=== PATIENT | male | born 1960 | race Caucasian/White ===

== ENCOUNTER 2020-05-15 18:00 | Outpatient (RCR) | payer OTHER, SELFPAY ==
[2020-03-10 08:44] VITALS: PULSE 62
[2020-03-10 09:48] VITALS: BP 114/64; PULSE 62; RESP 16; TEMP 36.7; O2SAT 96
--- NOTE | 2020-05-22 09:12 | PCCPR ---
Addendum entered by Meme Blake RN 05/29/20 14:49: oTny called today state he is still on crutches and unable to go to work. His Md is still trying to determine plan of action. He feels either way he will not be able t come in and complete the program. He wanted his dc papers sent to him. Original Note: Tony called this morning and stated that he had an accident over the weekend and fell. He bruised ribs and possibly tore his ACL. He is to see an orthopaedist this week to determine his plan of care. He will be absent this week and possibly place him on hold, depending on his diagnosis.
== END 2020-05-29 14:52 | disposition home or self-care (01) ==
LOC: ANHCPREHAB 18:00
PROVIDERS: PCP Family Medicine; Visit Provider Internal Medicine Cardiovascular Disease
DX: Z95.5 Presence of coronary angioplasty implant and graft (principal)
CPT/HCPCS: 93798

== ENCOUNTER 2020-05-21 08:34 | Emergency (ER) | payer OTHER, SELFPAY ==
--- NOTE | ~2020-05-21 | XR_ITS ---
EXAMINATION: XR knee LT min 4V EXAM DATE: 05/21/2020 09:17 INDICATION: Initial encounter following injury, with pain of the left knee. TECHNIQUE: Left knee frontal, crosstable lateral, orthogonal oblique projections for interpretation. There is no prior study for comparison. FINDINGS: No evidence osteochondral defect or joint body in the left knee joint. There are no acute fractures or dislocations identified. There is no subcutaneous gas. Small joint effusion. There a re no radiopaque foreign bodies. IMPRESSION: 1. Left knee exam without acute osseous findings. 2. Small joint effusion. Reviewed, dictated and finalized at location A.
--- NOTE | ~2020-05-21 | CT_ITS ---
EXAMINATION: CT brain wo con EXAM DATE: 05/21/2020 10:50 INDICATION: Fall. Head injury. TECHNIQUE: Spiral CT of the head was performed without contrast. Axial, coronal and sagittal images were reviewed. The dose-length product (DLP) for this examination was 605.33 mGy-cm. The exposure w as tailored according to patient size, and iterative reconstruction (ASIR) was used as additional dos e reduction technique. There is no prior study for comparison. FINDINGS: There is no acute intraparenchymal hemorrhage. No evidence of intraparenchymal brain mass lesion. No evidence of acute infarction. Please note that initial head CT has limited sensitivity f or small or acute infarctions. There is mild to moderate periventricular and subcortical hypodensity, nonspecific but probably related to small vessel ischemic disease. There is mild prominence of the sulci and ventricles related to cerebral atrophy. There is intracranial carotid arteriosclerosis. There are no extra-axial collections. There is no mass effect or midline shift. The orbits are unr emarkable. Soft tissue is unremarkable. The visualized sinuses and mastoid air cells are well aerat ed. IMPRESSION: 1. No acute intracranial findings. 2. Chronic age related findings. Reviewed, dictated and finalized at location A.
--- NOTE | ~2020-05-21 | XR_ITS ---
EXAMINATION: XR ribs LT 2V w CXR 2V EXAM DATE: 05/21/2020 09:18 INDICATION: Initial encounter following injury, with pain of the left ribs. TECHNIQUE: Frontal projection of the upper left ribs, frontal projection of the lower left ribs, obli que projection of the left ribs, frontal and lateral chest x-ray(s) for interpretation. There is no prior study for comparison. FINDINGS: There are no displaced acute left rib fractures identified. There is no soft tissue abnor mality seen. Sternotomy wires are present without findings to suggest sternal dehiscence. Cardiomedia stinal silhouette is normal. Chronic hyperinflation. No confluent consolidation, pneumothorax or pleu ral effusion suspected. Consider educating patient that even if there is a radiographically occult nondisplaced rib fracture, there is no specific treatment other than to refrain from activity that prevents healing. IMPRESSION: No displaced left rib fractures. Reviewed, dictated and finalized at location A.
[2020-05-21 08:33] VITALS: BP 161/91; PULSE 101; RESP 18; TEMP 36.3; O2SAT 92
[2020-05-21 08:54] VITALS: O2SAT 94
--- NOTE | 2020-05-21 09:47 | PC.NURSE ---
PT REFUSED MORPHINE STATES IT LOCKED ME UP REAL BAD LAST TIME. ERP JACKSON AWARE.
[2020-05-21 10:14] VITALS: BP 144/82; PULSE 68; RESP 16; O2SAT 97
--- NOTE | 2020-05-21 10:32 | PC.NURSE ---
ATTEMPTED TO AMBULATE PT WITH CRUTCHES. PT VERY SHAKY, UNSTEADY GAIT, UNABLE TO AMBULATE WITH CRUTCHES. MUNIRA PAZ AWARE OF FINDINGS, NEW ORDERS PLACED.
[2020-05-21] MEDS: SODIUM CHLORIDE 0.9% IV 1,000 ML 999 ML IV CONT (10:37)
--- NOTE | 2020-05-21 10:39 | PC.NURSE ---
PT TO CT AT THIS TIME. PT UPSET THAT NEW ORDERS HAVE BEEN PLACED, BUT HE IS AGREED TO DO THE CT BRAIN AND LET TECH DRAW BLOOD.
[2020-05-21 11:05] LABS: Basophils Absolute Auto 0.1 K/mm3 (0.0-0.1); Basophils Percent Auto 0.5 % (0.2-1.2); Eosinophils Absolute Auto 0.1 K/mm3 (0-0.3); Eosinophils Percent Auto 0.5 % (0-4.4); Hematocrit 41.3 % (42.0-52.0); Hemoglobin 14.3 g/dL (14.0-18.0); Immature Granulocyte Absolute 0.03 K/mm3 (0.00-0.031); Immature Granulocyte Percent A 0.3 % (0-0.5); Lymphocytes Absolute Auto 0.86 K/mm3 (0.9-3.2); Lymphocytes Percent Auto 8.4 % (18.3-44.2); Mean Corpuscular HGB Conc 34.6 g/dl (32-36); Mean Corpuscular Volume 92.4 fl (80-100); Mean Platelet Volume 10.2 fl (7.4-10.4); Monocytes Absolute Auto 0.9 K/mm3 (0.1-0.6); Monocytes Percent Auto 8.6 % (2.6-8.5); Neutrophils Absolute Auto 8.3 K/mm3 (1.3-6.7); Neutrophils Percent Auto 81.7 % (45.5-73.1); Platelet Count Result 190 k/mm3 (150-375); Red Blood Count 4.47 M/mm3 (4.6-6.20); Red Cell Distribution Width 13.8 % (11.5-14.5); White Blood Count 10.2 K/mm3 (4.5-10.0)
[2020-05-21 11:16] LABS: Anion Gap 8 mmol/L (8-16); Blood Urea Nitrogen 9 mg/dL (9-20); Calcium 9.7 mg/dL (8.4-10.2); Carbon Dioxide 28 mmol/L (22-30); Chloride 100 mmol/L (98-107); Estimated CRCL calculation 80 ml/min; Estimated Glomerular Filt Rate > 60; Glucose 84 mg/dL (75-110); Potassium 4.7 mmol/L (3.4-5.0); Sodium 136 mmol/L (137-145)
[2020-05-21 11:45] VITALS: BP 138/75; PULSE 102; RESP 18; O2SAT 100
[2020-05-21] MEDS: HYDROcodone/acetaminophen (*CRX) 5-325 MG TABLET 1 TAB PO (12:13)
[2020-05-21] MEDS: KETOROLAC 30 MG/ML VIAL (*BKC) IV PUSH (12:13)
--- NOTE | 2020-05-21 12:23 | ED.LOWEXIN ---
HPI - Extremity Injury (Lower) General Chief Complaint: Extremity Injury, Lower Stated Complaint: left knee and rib pain Time Seen by Provider: 05/21/20 09:14 History of Present Illness HPI Narrative: Patient is a 59-year-old male who presents the ER with left knee pain, left elbow pain, and left chest wall pain. Patient was intoxicated last night and was at a concert. He got up on stage to seeing with the band and then after the song ended instead of walking down the steps he tried to jump off the front of the stage. His foot got caught in some metal bars and he fell directly onto the ground striking his chest. He denies losing consciousness. Reports he had sudden onset pain in his chest wall and left knee. Reports he could not ambulate. Opted not to come to the ER last night due to intoxication. Today he still cannot ambulate due to his pain and noticed swelling of his left knee so he opted to come into the ER. He has not tried any pain medication. Related Data Home Medications Medication Instructions Recorded Confirmed carvedilol 6.25 mg PO BID 04/10/20 04/10/20 clopidogrel 75 mg PO DAILY 04/10/20 04/10/20 lisinopril 10 mg PO DAILY 04/10/20 04/10/20 rosuvastatin 40 mg PO DAILY 04/10/20 04/10/20 Allergies Allergy/AdvReac Type Severity Reaction Status Date / Time No Known Allergies Allergy Verified 05/21/20 08:38 Review of Systems Review of Systems: No All systems reviewed & are unremarkable except as noted in HPI and below Constitutional: Constitutional: Denies chills, Denies fever(s) and Denies weakness Cardiovascular: Cardiovascular: Reports chest pain, Denies rapid heart rate and Denies radiating jaw, neck or arm pain Respiratory: Respiratory: Denies cough, Denies dyspnea and Denies wheezing Musculoskeletal: Musculoskeletal: Reports myalgias, Reports arthralgias and Reports joint swelling Neurologic: Denies syncope, Denies headache(s), Denies focal weakness and Denies numbness PMFSH Past Medical History Medical History (Updated 05/21/20 @ 12:54 by Reza Schultz MD) Coronary artery disease Hyperlipidemia Hypertension Surgical History Surgical History (Updated 05/21/20 @ 12:24 by Reza Schultz MD) Hx of CABG Social History Social History Smoking packs per day: 1 Smoking cigarettes per day: 20.0 Years smoked: 35 Smoking pack-years: 35.00 Smoking status: Former smoker Tobacco type: cigarettes Additional smoking assessment comments: down to 3/4 pakg/day he quit apx 1 1/2 yrs after heart surgery Alcohol intake: current Exam Narrative: Exam Narrative: GENERAL: Well-appearing, well-nourished, and in no acute distress. HEAD: Normocephalic, atraumatic. ENT: Mucous membranes moist. CHEST: Clear to auscultation. No respiratory distress. Tender palpation across the left lateral chest wall without bruising or swelling. Point tender near rib #8. HEART: Regular rate and rhythm. Normal peripheral pulses. ABDOMEN: Soft, nontender, nondistended. EXTREMITIES: Limited range of motion left lower extremity at the knee where there is swelling. No bruising. Unremarkable valuation of the upper extremities or right lower extremity. SKIN: Warm, dry, no rash. NEURO: Alert and oriented x3. Course Course Emergency Course: Patient up and ambulatory with crutches after Toradol and Nunnelly. Recommend follow-up with orthopedic surgery or PCP. May require MRI on the knee if his pain is not improving. Verbalized understanding. Discharge home. Vital Signs Vital signs: Vital Signs Temperature 97.3 F L 05/21/20 08:33 Pulse Rate 101 H 05/21/20 08:33 Respiratory Rate 18 05/21/20 08:33 Blood Pressure 161/91 H 05/21/20 08:33 Pulse Oximetry 92 05/21/20 08:33 Temperature 97.3 F L 05/21/20 08:33 Pulse Rate 102 H 05/21/20 11:45 Respiratory Rate 18 05/21/20 11:45 Blood Pressure 138/75 05/21/20 11:45 Pulse Oximetry 100 05/21/20 11:45 MDM - Extremity Injury (L
--- NOTE | 2020-05-21 12:46 | PC.NURSE ---
PT ATTEMPTED AMBULATION AGAIN AFTER PAIN MEDICATION. PT AMBULATED BETTER ON CRUTCHES AFTER PAIN MEDICATION, MUNIRA PAZ INFORMED, PT STATES HE IS READY TO LEAVE ED.
[2020-05-21 13:09] VITALS: BP 149/78; PULSE 92; RESP 18; O2SAT 100
== END 2020-05-21 13:10 | disposition home or self-care (01) ==
PROVIDERS: Emergency Provider Emergency Medicine; PCP Family Medicine
DX: M25.462 Effusion, left knee (principal); R07.89 Other chest pain; I25.10 Atherosclerotic heart disease of native coronary artery without angina pectoris; E78.5 Hyperlipidemia, unspecified; I10 Essential (primary) hypertension; Z87.891 Personal history of nicotine dependence; W17.89XA Other fall from one level to another, initial encounter
CPT/HCPCS: 36415; 70450; 71046; 71100; 73564; 80048; 85025; 96361; 96374; 99284; A9270; J1885; J7030

== ENCOUNTER 2020-10-30 08:45 | Outpatient (CLI) | payer OTHER, SELFPAY | END 2020-10-30 08:46 | LOC: ANHCOVIDVC 08:45 | PROVIDERS: PCP Family Medicine | DX: Z23 Encounter for immunization (principal) | CPT/HCPCS: 0001A; 91300 ==

== ENCOUNTER 2020-11-20 08:43 | Outpatient (CLI) | payer OTHER, SELFPAY | END 2020-11-20 08:44 | disposition home or self-care (01) | LOC: ANHCOVIDVC 08:43 | PROVIDERS: PCP Family Medicine | DX: Z23 Encounter for immunization (principal) | CPT/HCPCS: 0002A; 91300 ==

== ENCOUNTER 2022-07-13 16:42 | Inpatient (IN) | payer OTHER, SELFPAY ==
[2022-07-13] VITALS (17 sets, daily range): BP systolic 126–193; BP diastolic 82–100; PULSE 93–108; RESP 17–26; TEMP 37.1–37.3; O2SAT 85–99; BMI 19.6
--- NOTE | ~2022-07-13 | XR_ITS ---
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 hx bypass surgery, htn, cad Comparison: None available. RESULT: Lines, tubes, and devices: Intact sternotomy wires. Mediastinal surgical clips. Ostial marker. Lungs and pleura: No focal consolidation. Likely emphysematous change. Mild diffuse reticular opacit ies. Cardiomediastinal silhouette: Stable. Other: No acute osseous or upper abdominal finding. IMPRESSION: Mild interstitial edema. Reviewed, dictated and finalized at location K. METAL CRANE OPERATOR IMPRESSION: Mild interstitial edema.
--- NOTE | 2022-07-13 16:48 | ECG_ITS ---
Measurements Intervals [place] Rate: 105 P: 86 SC: 151 QRS: 85 QRSD: 93 T: 83 QT: 323 QTc: 428 Interpretive Statements SINUS TACHYCARDIA RIGHT ATRIAL ENLARGEMENT LEFT ATRIAL ENLARGEMENT INCOMPLETE RIGHT BUNDLE BRANCH BLOCK DELAYED PRECORDIAL R/S TRANSITION BORDERLINE ST ABNORMALITY- LATERAL LEADS BASELINE ARTIFACT- I, III, AVR, AVL, AVF, V1, V5-V6 BORDERLINE ECG NO PREVIOUS ECG AVAILABLE FOR COMPARISON Electronically Signed On 07-14-2022 9:08:32 PET NUTRITION SPECIALIST by James Atwood D.O.
--- NOTE | 2022-07-13 16:57 | ED.CHESTPAIN ---
HPI - Chest Pain General Chief Complaint: Chest Pain <KALEY Conley Last Filed: 07/14/22 01:46> Stated Complaint: chest pain <KALEY Conley Last Filed: 07/14/22 01:46> Time Seen by Provider: 07/13/22 16:52 <KALEY Conley Last Filed: 07/14/22 01:46> Source: patient <KALEY Conley Last Filed: 07/14/22 01:46> Mode of arrival: ambulatory <KALEY Conley Filed: 07/14/22 01:46> Limitations: no limitations <KALEY Conley Last Filed: 07/14/22 01:46> History of Present Illness HPI narrative: Patient is a 61 y/o male, w/ PMHx of CAD s/p CABG and COPD with current smoking, who presents to the ED with c/o CP and SOB. Patient reports he has had a cough, congestion, rhinorrhea, NGUYEN for the past couple days. Today he began feeling increasingly short of breath, worse with any sort of exertion and laying flat. He also reported having 2 episodes of midsternal chest pressure this morning. He did take nitroglycerin with one of the episodes, which resolved his pain. He denies any pain currently. He did not take his blood pressure medicine today. He does not wear oxygen at home. He denies any fever, sore throat, myalgias, abdominal pain. Patient is vaccinated and boosted for COVID, but not vaccinated for influenza. Patient is a smoker. <KALEY Conley Last Filed: 07/14/22 01:46> Related Data Home Medications: Home Medications Medication Instructions Recorded Confirmed clopidogrel 75 mg tablet 75 mg PO DAILY 04/10/20 07/13/22 rosuvastatin 40 mg tablet 40 mg PO DAILY 04/10/20 07/13/22 Tylenol 650 mg PO Q6H PRN Pain 07/13/22 07/13/22 carvedilol 6.25 mg PO BID 07/13/22 07/13/22 lisinopril 10 mg PO DAILY 07/13/22 07/13/22 nitroglycerin 0.4 mg sublingual 0.4 mg sublingual Q5-15M PRN Chest 07/13/22 07/13/22 tablet Pain <Malia Farfan PA-C - Last Filed: 07/14/22 01:46> Allergies/Adverse Reactions: Allergies Allergy/AdvReac Type Severity Reaction Status Date / Time No Known Allergies Allergy Verified 07/13/22 16:48 <Malia Farfan PA-C - Last Filed: 07/14/22 01:46> Review of Systems Review of Systems: CONSTITUTIONAL: Denies fever, chills, or sweats. ENT: Reports rhinorrhea, congestion. Denies sore throat. CARDIOVASCULAR: Reports chest pain. RESPIRATORY: Reports cough and dyspnea. GASTROINTESTINAL: Denies abdominal pain, nausea, vomiting. MUSCULOSKELETAL: Denies myalgia. NEUROLOGIC: Reports NGUYEN. Denies numbness or weakness. <Malia Farfan PA-C - Last Filed: 07/14/22 01:46> All systems reviewed & are unremarkable except as noted in HPI and below <Malia Farfan PA-C - Last Filed: 07/14/22 01:46> [facility] Past Medical History Medical History: Medical History Acute medial meniscus tear of left knee Contusion, knee and lower leg (05/20/20) COPD (chronic obstructive pulmonary disease) Coronary artery disease Heart attack History of coronary artery disease Hyperlipidemia Hypertension Vision abnormalities <Malia Farfan PA-C - Last Filed: 07/14/22 01:46> Surgical History Surgical History: Surgical History H/O heart artery stent 2 Hx of CABG 4 <KALEY Conley Last Filed: 07/14/22 01:46> Family History Family History: Family History Grandparent Family history of malignant neoplasm Family history of emphysema Sibling Family history of lung cancer Father Family history of coronary artery disease Mother Family history of coronary artery disease Other Heart disease Hypertension <Malia Farfan PA-C - Last Filed: 07/14/22 01:46> Social History Social History: Social History (Reviewed 07/14/22 @ 01:44 by Yamileth
[2022-07-13 17:03] LABS: Basophils Absolute Auto 0.1 K/mm3 (0.0-0.1); Basophils Percent Auto 0.8 % (0.2-1.2); Eosinophils Percent Auto 0.2 % (0-4.4); Hematocrit 46.4 % (42.0-52.0); Hemoglobin 15.6 g/dL (14.0-18.0); Immature Granulocyte Absolute 0.02 K/mm3 (0.00-0.031); Immature Granulocyte Percent A 0.2 % (0-0.5); Lymphocytes Absolute Auto 0.79 K/mm3 (0.9-3.2); Lymphocytes Percent Auto 9.1 % (18.3-44.2); Mean Corpuscular HGB Conc 33.6 g/dl (32-36); Mean Corpuscular Hemoglobin 30.9 pg (26-34); Mean Corpuscular Volume 91.9 fl (80-100); Mean Platelet Volume 10.9 fl (7.4-10.4); Monocytes Absolute Auto 1.5 K/mm3 (0.1-0.6); Monocytes Percent Auto 17.3 % (2.6-8.5); Neutrophils Absolute Auto 6.3 K/mm3 (1.3-6.7); Neutrophils Percent Auto 72.4 % (45.5-73.1); Platelet Count Result 230 k/mm3 (150-375); Red Blood Count 5.05 M/mm3 (4.6-6.20); Red Cell Distribution Width 13.8 % (11.5-14.5); White Blood Count 8.7 K/mm3 (4.5-10.0)
[2022-07-13 17:16] LABS: Alanine Aminotransferase 23 U/L (6-50); Alkaline Phosphatase 72 U/L (38-126); Anion Gap 12 mmol/L (8-16); Aspartate Amino Transferase 40 U/L (17-59); Bilirubin,Total 0.5 mg/dL (0.2-1.3); Blood Urea Nitrogen 12 mg/dL (9-20); Calcium 9.7 mg/dL (8.4-10.2); Carbon Dioxide 28 mmol/L (22-30); Chloride 95 mmol/L (98-107); Estimated CRCL calculation 72 ml/min; Estimated Glomerular Filt Rate > 60; Glucose 84 mg/dL (65-110); Lipase 38 U/L (23-300); Potassium 5.1 mmol/L (3.4-5.0); Prothrombin Time 12.3 Seconds (11.1-14.7); Sodium 135 mmol/L (137-145)
[2022-07-13 17:17] LABS: Partial Thromboplastin Time 26.5 SECONDS (22.3-36.8)
[2022-07-13 17:26] LABS: Troponin I < 0.012 ng/mL (0.000-0.034)
[2022-07-13] MEDS: ASPIRIN 81 MG CHEWABLE TABLET 324 MG PO (17:27)
[2022-07-13] MEDS: LABETALOL HCL INJ 100 MG/20 ML VIAL 20 MG IV PUSH (17:29)
[2022-07-13] MEDS: SODIUM CHLORIDE 0.9% IV 1,000 ML 999 ML IV CONT (17:29)
[2022-07-13 17:36] LABS: Influenza A QL RT-PCR Positive (Negative); Influenza B QL RT-PCR Negative (Negative); SARS-CoV-2 RNA PCR Negative
[2022-07-13] MEDS: BENZONATATE 100 MG CAPSULE 200 MG PO (18:03)
[2022-07-13 18:31] LABS: Base Excess ABG -1.6 mEq/l (+/-2.0); Carboxyhemoglobin 1.4 % THb (0-2.0); Fractional Inspired Oxygen 32 %; HCO3 ABG 24.2 mEq/l (22.0-26.0); Methemoglobin ABG 0.2 %THb (0-1.5); Oxygen Content ABG 19.6 %vol (16.0-22.0); Oxygen Saturation ABG 96.6 % (95.0-100.0); Oxyhemoglobin 94.4 % THb (90.0-100.0); PCO2 ABG 44.8 mmHg (35.0-45.0); PO2 ABG 91.7 mmHg (80.0-100.0); PO2 FiO2 Ratio Arterial Blood 2.87 %; Total Hemoglobin 14.7 g/dL (12.0-18.0); pH ABG 7.351 (7.350-7.450)
[2022-07-13 18:32] LABS: Device NASAL CANNULA; Modified Allen's Test Pass; Site Drawn RIGHT RADIAL
--- NOTE | 2022-07-13 19:22 | PC.NURSE ---
Assumed care of pt at this time. Pt alert and upright on stretcher, updated on POC.
--- NOTE | 2022-07-13 19:28 | PM.IMHP ---
H&P: HPI History of Present Illness Date/Time: 07/13/22 19:28 Chief Complaint: Chest pain Narrative: This is a 61-year-old male patient who has a history of having coronary artery disease status post coronary stents and a CABG. The patient also has COPD with smoking history. The patient also has been complaining of a cough congestion and rhinorrhea and headache for the past couple days. The patient felt more short of breath today expressly with minimal exertion and lying flat. The patient also had midsternal chest pain and he stated that he took his nitro in it resolve the pain. His blood pressure is elevated today and he did not take his blood pressure medicine. He does not wear oxygen at home. White count is normal. Potassium slightly high at 5.1 and his sodium is slightly low at 135. Troponins are negative x2. The patient is positive for influenza. Chest x-ray was read as mild interstitial edema. The patient was given aspirin, labetalol, IV fluids, Tessalon Perles, neb treatments and was started on Tamiflu. The patient is being admitted to observation status on the date of service of 07/13/2022. Review of Systems Review of Systems: See HPI All systems reviewed & are unremarkable except as noted in HPI and below Constitutional: Constitutional: Reports as per HPI and Reports no additional constitutional complaints Eyes: Eyes: Reports as per HPI and Reports no additional eye complaints ENT: Reports system reviewed and no additional complaints, except as documented and Reports Normal hearing present Cardiovascular: Cardiovascular: Reports no additional cardiovascular complaints Respiratory: Respiratory: Reports no additional respiratory complaints and Reports no additional respiratory complaints Gastrointestinal: Gastrointestinal: Reports as per HPI and Reports no additional gastrointestinal complaints Musculoskeletal: Musculoskeletal: Reports no additional musculoskeletal complaints Integumentary/Breasts: Skin/Breast: Reports system reviewed and no additional complaints, except as docu and Reports as per HPI Neurologic: Reports system reviewed and no additional complaints, except as documented, Reports as per HPI and Reports Normal hearing present Psychiatric: Psychiatric: Reports no additional psychiatric complaints and Reports as per HPI Endocrine: Endocrine: Reports no additional endocrine complaints Hematologic/Lymphatic: Hematologic/Lymphatic: Reports no additional hematologic/lymphatic complaints Allergic/Immunologic: Allergic/Immunologic: Reports no additional allergic/immunologic complaints COUNTS INCLUDE 234 BEDS AT THE [facility] Past Medical History Medical History (Updated 07/13/22 @ 23:37 by Daniela Santos NP) Acute medial meniscus tear of left knee Contusion, knee and lower leg (05/20/20) COPD (chronic obstructive pulmonary disease) Coronary artery disease Heart attack History of coronary artery disease Hyperlipidemia Hypertension Vision abnormalities Surgical History Surgical History H/O heart artery stent 2 Hx of CABG 4 Family History Family History Grandparent Family history of malignant neoplasm Family history of emphysema Sibling Family history of lung cancer Father Family history of coronary artery disease Mother Family history of coronary artery disease Other Heart disease Hypertension Social History Social History (Updated 07/13/22 @ 23:25 by Daniela Santos NP) Social History: The patient is and has 2 children. 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 The patient smokes a pack and half a day of cigarettes. The patient stated he is quitting today. Patient stated that he occasionally drinks alcohol. He denies any marijuana or illicit drugs. Code status full code Smoking packs per day: 1.5 Smoking cigaret
--- NOTE | 2022-07-13 19:40 | PC.NURSE ---
karyn fagan to down grade to MT at this time.
[2022-07-13] MEDS: OSELTAMIVIR PHOSPHATE 75 MG CAPSULE PO (20:08)
--- NOTE | 2022-07-13 20:26 | PC.NURSE ---
Report called at this time. Pt unable to go to floor until respiratory tx is completed. ED charge notified.
[2022-07-13 20:43] LABS: Troponin I < 0.012 ng/mL (0.000-0.034)
[2022-07-13] MEDS: IPRATROPIUM BR 0.02% INH SOLN 0.5 MG/2.5 ML VIAL INHALATION (20:47)
[2022-07-13] MEDS: guaiFENesin/DEXTROMETHORPHAN 10 ML UDC PO (21:32)
[2022-07-13] MEDS: ACETAMINOPHEN 325 MG TABLET 650 MG PO (22:01)
--- NOTE | 2022-07-13 22:07 | PC.NURSE ---
manual bp 180/86 calling Daniela BURGOS for hydralazine pt did receive bp meds in Ed.
[2022-07-13] MEDS: hydrALAZINE HCL 20 MG/ML VIAL 10 MG IV PUSH (22:18)
--- NOTE | 2022-07-13 22:31 | PC.NURSE ---
pt c/o sob, neb tx xopenex and atrovent scheduled q6hrs now per Tom BURGOS
[2022-07-13 22:53] LABS: Troponin I < 0.012 ng/mL (0.000-0.034)
[2022-07-13] MEDS: carvediloL 6.25 MG TABLET PO (23:47)
[2022-07-14] VITALS (16 sets, daily range): BP systolic 121–142; BP diastolic 62–76; PULSE 83–104; RESP 18–20; TEMP 37–37.1; O2SAT 90–98
--- NOTE | 2022-07-14 | ECG_ITS ---
Measurements Intervals [place] Rate: 93 P: 81 IN: 159 QRS: 61 QRSD: 89 T: 77 QT: 358 QTc: 447 Interpretive Statements SINUS RHYTHM VENTRICULAR PREMATURE COMPLEX RIGHT ATRIAL ENLARGEMENT LEFT ATRIAL ENLARGEMENT INCOMPLETE RIGHT BUNDLE BRANCH BLOCK CANNOT RULE OUT SEPTAL INFARCT, AGE INDETERMINATE ABNORMAL ECG COMPARED TO ECG 07/13/2022 16:50:30 SINUS RHYTHM NOW PRESENT MYOCARDIAL INFARCT FINDING NOW PRESENT Electronically Signed On 07-14-2022 9:20:45 MANAGER EDITORIAL by James Atwood D.O.
[2022-07-14] MEDS: methylPREDNISolone SOD SUCC 125 MG VIAL 60 MG IV PUSH ×4 (00:10→21:02)
[2022-07-14] MEDS: guaiFENesin/DEXTROMETHORPHAN 10 ML UDC PO ×3 (00:12→12:09)
[2022-07-14 00:29] LABS: Anion Gap 11 mmol/L (8-16); Blood Urea Nitrogen 13 mg/dL (9-20); Calcium 8.4 mg/dL (8.4-10.2); Carbon Dioxide 23 mmol/L (22-30); Chloride 99 mmol/L (98-107); Estimated CRCL calculation 77 ml/min; Estimated Glomerular Filt Rate > 60; Glucose 85 mg/dL (65-110); Potassium 3.9 mmol/L (3.4-5.0); Sodium 133 mmol/L (137-145)
[2022-07-14 01:35] LABS: D Dimer 0.71 ug/mL (<0.48)
--- NOTE | 2022-07-14 01:42 | PC.NURSE ---
pt anxious after receiving solumetrol 60 mg IV push called MD Jacome to d/c solumetrol and requiring ativan for anxiety or something to help pt sleep
[2022-07-14] MEDS: LORazepam INJ (*CRX) 2 MG/ML VIAL 1 MG IV PUSH (01:53)
[2022-07-14 07:17] LABS: Hematocrit 41.4 % (42.0-52.0); Hemoglobin 13.9 g/dL (14.0-18.0); Mean Corpuscular HGB Conc 33.6 g/dl (32-36); Mean Corpuscular Hemoglobin 30.8 pg (26-34); Mean Corpuscular Volume 91.6 fl (80-100); Mean Platelet Volume 11.1 fl (7.4-10.4); Platelet Count Result 195 k/mm3 (150-375); Red Blood Count 4.52 M/mm3 (4.6-6.20); Red Cell Distribution Width 13.8 % (11.5-14.5); White Blood Count 8.4 K/mm3 (4.5-10.0)
[2022-07-14 07:33] LABS: Magnesium 1.9 mg/dL (1.6-2.3); Phosphorus 3.7 mg/dL (2.5-4.5)
[2022-07-14] MEDS: IPRATROPIUM BR 0.02% INH SOLN 0.5 MG/2.5 ML VIAL INHALATION ×4 (08:29→21:19)
[2022-07-14] MEDS: lisinopriL 10 MG TABLET PO (08:37)
[2022-07-14] MEDS: carvediloL 6.25 MG TABLET PO ×2 (08:37→21:02)
[2022-07-14] MEDS: CLOPIDOGREL BISULFATE 75 MG TABLET PO (08:37)
[2022-07-14] MEDS: OSELTAMIVIR PHOSPHATE 75 MG CAPSULE PO ×2 (08:38→21:02)
[2022-07-14] MEDS: ROSUVASTATIN 10 MG TABLET 40 MG PO (08:38)
[2022-07-14 09:27] LABS: Band Neutrophils Percent 26 % (0-6); Lymphocytes Absolute Manual 0.16 K/mm3 (1.1-4.5); Neutrophils Absolute Manual 8.23 K/mm3 (1.3-6.7); Neutrophils Percent Manual 72 % (46-73); Total Cells Counted 100
[2022-07-14 09:28] LABS: Platelet Estimate Adequate (Adequate); Schistocytes None Seen (NORMAL)
--- NOTE | 2022-07-14 09:31 | PM.IMPN ---
Progress Note: A&P Assessment and Plan (1) Chest pain: Code(s): R07.9 - Chest pain, unspecified Status: Acute Assessment and Plan: Patient has a history of CAD with 4 vessel CABG 2016 as well as 2 coronary stents in 2018. -No cardiac symptoms prior to be becoming ill. -Trop negative x 3. -EKG showing sinus rhythm, LAE and incomplete Rt BBB, delayed R wave progression but no old EKGs to compare -Tele showing no significant dysrhythmias -CTA pulmonary recommended but patient refused -[place] CP related to recent illness and not cardiac disease. Explained to patient that he will need to follow up with his Installer Helper but return to ED if he has recurrent chest pain. (2) Influenza A: Code(s): J10.1 - Influenza due to other identified influenza virus with other respiratory manifestations Status: Acute Assessment and Plan: Patient was in good health until he developed CP, SOB and cough and found to have Influenza A -started on Tamiflu -WBC normal and remaining normal. Sputum clear. Bandemia noted - bone marrow strain/suppression from viral illness? -continue supportive care -continue with Robitussin and nebulizer treatments -follow CBC (3) COPD (chronic obstructive pulmonary disease): Code(s): J44.9 - Chronic obstructive pulmonary disease, unspecified Status: Acute Assessment and Plan: [place] patient with COPD exacerbation. -continue Solu-Medrol. -continue with nebulizer treatments (4) Hypertension: Code(s): I10 - Essential (primary) hypertension Status: Acute Assessment and Plan: Patient's blood pressure was reviewed on 07/14 Blood pressure was elevated at times but better now. Will continue current medications. (5) History of coronary artery disease: Code(s): Z86.79 - Personal history of other diseases of the circulatory system Status: Acute Assessment and Plan: CAD with hx of CABG 2016 and stents x 2 in 2018. -continue current medical management with clopidogrel, Coreg and Crestor. (6) Tobacco abuse: Code(s): Z72.0 - Tobacco use Status: Acute Assessment and Plan: Patient states he quit tobacco on admission. He was strongly encouraged to remain tobacco free. He was educated about the benefits of smoking cessation. Plan Hyperkalemia - Repeat potassium better. Lisinopril resumed. Follow. Subjective Date/time seen: 07/14/22 09:31 Interval history: 61yo male with CAD, COPD and ongoing tobacco use here for SOB, CP and cough and found to have Influenza A Patient has CAD status post CABG 2016 with 2 stents placed in 2018. Follows with Cardiology at [facility]. He has yearly stress tests. His last stress test was in the fall of 2020 which was negative. His next stress test is scheduled for August 29. 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 Prior to his illness, he has not been having any chest pain or shortness of breath. He was climbing ladders without difficulty prior to becoming ill. He does state the chest pain on admission did feel like it had when he was treated in 2015 and 2017 but today he states the chest pain is related to coughing. He has pleuritic pain. He is wheezing. Cough is productive clear sputum. He slept poorly last night. Shortness of breath is better today. Exam Narrative: AF 98.6 142/76 84 20 98% ra Gen - NARD lying semi-recumbent in bed Chest - decreased BS with expiratory rhonchi. nml RR CV - RRR S1/S2, Tele showing PVCs Abd - Soft, scaphoid, NT, +BS Ext - No pedal edema. Negative Edilson's Psych - Nml mood and affect. sleepy Skin - Warm and dry Objective Data Vital Signs Vital Signs: Vital Signs - 24 hr 07/13/22 16:45 07/13/22 16:50 07/13/22 16:59 Temperature 99.1 F Pulse Rate 108 H 107 H Respiratory Rate 24 H Blood Pressure 193/100 H Pulse Oximetry 88 L 85 L Oxygen Delivery Room Air Room Air Oxygen Flow R
[2022-07-14] MEDS: MELATONIN 3 MG TABLET PO (21:02)
[2022-07-15] VITALS (16 sets, daily range): BP systolic 99–124; BP diastolic 55–70; PULSE 54–87; RESP 18–20; TEMP 35.6–36.5; O2SAT 90–93
[2022-07-15] MEDS: methylPREDNISolone SOD SUCC 125 MG VIAL 60 MG IV PUSH ×2 (05:50→17:00)
[2022-07-15 07:32] LABS: Hematocrit 42.1 % (42.0-52.0); Hemoglobin 14.4 g/dL (14.0-18.0); Mean Corpuscular HGB Conc 34.2 g/dl (32-36); Mean Corpuscular Hemoglobin 31.2 pg (26-34); Mean Corpuscular Volume 91.3 fl (80-100); Platelet Count Result 203 k/mm3 (150-375); Red Blood Count 4.61 M/mm3 (4.6-6.20); Red Cell Distribution Width 13.6 % (11.5-14.5); White Blood Count 15.1 K/mm3 (4.5-10.0)
[2022-07-15 07:52] LABS: Band Neutrophils Percent 6 % (0-6); Lymphocytes Absolute Manual 0.45 K/mm3 (1.1-4.5); Monocytes Percent Manual 2 % (3-9); Neutrophils Absolute Manual 14.34 K/mm3 (1.3-6.7); Neutrophils Percent Manual 89 % (46-73); Platelet Estimate Adequate (Adequate); Schistocytes None Seen (NORMAL); Total Cells Counted 100
[2022-07-15 07:55] LABS: Anion Gap 7 mmol/L (8-16); Blood Urea Nitrogen 24 mg/dL (9-20); Calcium 8.4 mg/dL (8.4-10.2); Carbon Dioxide 28 mmol/L (22-30); Chloride 99 mmol/L (98-107); Estimated CRCL calculation 68 ml/min; Estimated Glomerular Filt Rate > 60; Glucose 144 mg/dL (65-110); Potassium 4.4 mmol/L (3.4-5.0); Sodium 134 mmol/L (137-145)
[2022-07-15] MEDS: ROSUVASTATIN 10 MG TABLET 40 MG PO (08:45)
[2022-07-15] MEDS: lisinopriL 10 MG TABLET PO (08:46)
[2022-07-15] MEDS: OSELTAMIVIR PHOSPHATE 75 MG CAPSULE PO ×2 (08:46→20:59)
[2022-07-15] MEDS: CLOPIDOGREL BISULFATE 75 MG TABLET PO (08:46)
[2022-07-15] MEDS: carvediloL 6.25 MG TABLET PO ×2 (08:47→20:59)
[2022-07-15] MEDS: ENOXAPARIN 40 MG/0.4 ML SYRINGE SUB-Q (08:48)
[2022-07-15] MEDS: IPRATROPIUM BR 0.02% INH SOLN 0.5 MG/2.5 ML VIAL INHALATION ×2 (09:18→14:09)
--- NOTE | 2022-07-15 13:15 | PM.IMPN ---
Progress Note: A&P Assessment and Plan (1) Chest pain: Code(s): R07.9 - Chest pain, unspecified Status: Acute Assessment and Plan: Patient has a history of CAD with 4 vessel CABG 2016 as well as 2 coronary stents in 2018. -No cardiac symptoms prior to be becoming ill. -Trop negative x 3. -EKG showing sinus rhythm, LAE and incomplete Rt BBB, delayed R wave progression but no old EKGs to compare -Tele showing no significant dysrhythmias -CTA pulmonary recommended but patient refused -[place] CP related to recent illness and not cardiac disease. Related to eelvated BP? Explained to patient that he will need to follow up with his Orthodontist but return to ED if he has recurrent chest pain. (2) Influenza A: Code(s): J10.1 - Influenza due to other identified influenza virus with other respiratory manifestations Status: Acute Assessment and Plan: Patient was in good health until he developed CP, SOB and cough and found to have Influenza A -started on Tamiflu -WBC higher from steroids but bandemia resolved. Bandemia noted - bone marrow strain/suppression from viral illness? -continue supportive care -continue with Robitussin and nebulizer treatments -wean O2 to keep SpO2>93% (3) COPD (chronic obstructive pulmonary disease): Code(s): J44.9 - Chronic obstructive pulmonary disease, unspecified Status: Acute Assessment and Plan: [place] patient with COPD exacerbation. -continue Solu-Medrol. -continue with nebulizer treatments -wean steroids (4) Hypertension: Code(s): I10 - Essential (primary) hypertension Status: Acute Assessment and Plan: Patient's blood pressure was reviewed on 07/15 Blood pressure better controlled and stable Will continue current medications. (5) History of coronary artery disease: Code(s): Z86.79 - Personal history of other diseases of the circulatory system Status: Acute Assessment and Plan: CAD with hx of CABG 2016 and stents x 2 in 2018. -continue current medical management with clopidogrel, Coreg and Crestor. (6) Tobacco abuse: Code(s): Z72.0 - Tobacco use Status: Acute Assessment and Plan: Patient states he quit tobacco on admission. He was strongly encouraged to remain tobacco free. He was educated about the benefits of smoking cessation. Plan Hyperkalemia - Repeat potassium better. Lisinopril resumed. Follow. Subjective Date/time seen: 07/15/22 13:15 Interval history: 61yo male with CAD, COPD and ongoing tobacco use here for SOB, CP and cough and found to have Influenza A Patient feels better today. Cough is improved. Cough is productive whitish sputum. He feels less short of breath. No chest pain. Slept well last night. No wheezing. Exam Narrative: AF 97.7 112/57 87 18 93% 1L Gen - NARD Chest - Distant breath sounds. No wheezing. CV - RRR S1/S2, Tele showing PVCs with occasional bigeminy. Abd - Soft, scaphoid, NT, +BS Ext - No pedal edema. Psych - Nml mood and affect Skin - Warm and dry Objective Data Vital Signs Vital Signs: Vital Signs - 24 hr 07/14/22 16:00 07/14/22 14:04 07/14/22 14:18 Temperature Pulse Rate 96 91 91 Respiratory Rate 20 20 Blood Pressure Pulse Oximetry Oxygen Delivery Oxygen Flow Rate 07/14/22 19:54 07/14/22 21:19 07/14/22 21:21 Temperature Pulse Rate 96 83 83 Respiratory Rate 20 20 20 Blood Pressure Pulse Oximetry 91 90 Oxygen Delivery Nasal Cannula Nasal Cannula Oxygen Flow Rate 1 2 07/14/22 22:00 07/14/22 20:00 07/15/22 00:00 Temperature 98.7 F Pulse Rate 86 90 62 Respiratory Rate 20 Blood Pressure 121/62 Pulse Oximetry 90 Oxygen Delivery Oxygen Flow Rate 07/15/22 04:00 07/15/22 05:27 07/15/22 08:47 Temperature 97.7 F Pulse Rate 62 64 63 Respiratory Rate 20 Blood Pressure 99/55 L Pulse Oximetry 90 Oxygen Delivery Oxygen Flow R
[2022-07-15] MEDS: MELATONIN 3 MG TABLET PO (20:59)
[2022-07-16] VITALS (24 sets, daily range): BP systolic 108–161; BP diastolic 56–78; PULSE 54–84; RESP 14–20; TEMP 36.2–36.5; O2SAT 87–94
[2022-07-16] MEDS: IPRATROPIUM BR 0.02% INH SOLN 0.5 MG/2.5 ML VIAL INHALATION ×3 (03:30→22:54)
[2022-07-16] MEDS: methylPREDNISolone SOD SUCC 125 MG VIAL 60 MG IV PUSH (05:22)
[2022-07-16 06:10] LABS: Basophils Percent Auto 0.1 % (0.2-1.2); Hematocrit 44.3 % (42.0-52.0); Hemoglobin 14.7 g/dL (14.0-18.0); Immature Granulocyte Absolute 0.12 K/mm3 (0.00-0.031); Immature Granulocyte Percent A 0.6 % (0-0.5); Lymphocytes Absolute Auto 0.69 K/mm3 (0.9-3.2); Lymphocytes Percent Auto 3.7 % (18.3-44.2); Mean Corpuscular HGB Conc 33.2 g/dl (32-36); Mean Corpuscular Hemoglobin 31.6 pg (26-34); Mean Corpuscular Volume 95.3 fl (80-100); Mean Platelet Volume 11.4 fl (7.4-10.4); Monocytes Absolute Auto 1.1 K/mm3 (0.1-0.6); Monocytes Percent Auto 5.7 % (2.6-8.5); Neutrophils Absolute Auto 16.7 K/mm3 (1.3-6.7); Neutrophils Percent Auto 89.9 % (45.5-73.1); Platelet Count Result 212 k/mm3 (150-375); Red Blood Count 4.65 M/mm3 (4.6-6.20); White Blood Count 18.6 K/mm3 (4.5-10.0)
[2022-07-16 07:15] LABS: Hypochromasia 1+ (NORMAL); Schistocytes None Seen (NORMAL); Tear Drop Cells 1+ (NORMAL)
[2022-07-16] MEDS: ENOXAPARIN 40 MG/0.4 ML SYRINGE SUB-Q (08:19)
[2022-07-16] MEDS: ROSUVASTATIN 10 MG TABLET 40 MG PO (08:19)
[2022-07-16] MEDS: lisinopriL 10 MG TABLET PO (08:19)
[2022-07-16] MEDS: OSELTAMIVIR PHOSPHATE 75 MG CAPSULE PO ×2 (08:19→21:25)
[2022-07-16] MEDS: carvediloL 6.25 MG TABLET PO ×2 (08:19→21:25)
[2022-07-16] MEDS: CLOPIDOGREL BISULFATE 75 MG TABLET PO (08:19)
--- NOTE | 2022-07-16 10:58 | PCRCNOTE ---
Window of time for administration has passed. See next scheduled administration.
--- NOTE | 2022-07-16 11:02 | PM.IMPN ---
Progress Note: A&P Assessment and Plan (1) Chest pain: Code(s): R07.9 - Chest pain, unspecified Status: Acute Assessment and Plan: Patient has a history of CAD with 4 vessel CABG 2016 as well as 2 coronary stents in 2018. -No cardiac symptoms prior to be becoming ill. -Trop negative x 3. -EKG showing sinus rhythm, LAE and incomplete Rt BBB, delayed R wave progression but no old EKGs to compare -Tele showing no significant dysrhythmias -CTA pulmonary recommended but patient refused -[place] CP related to recent illness and not cardiac disease. Related to eelvated BP? Explained to patient that he will need to follow up with his Crankshaft Balancer but return to ED if he has recurrent chest pain. (2) Influenza A: Code(s): J10.1 - Influenza due to other identified influenza virus with other respiratory manifestations Status: Acute Assessment and Plan: Patient was in good health until he developed CP, SOB and cough and found to have Influenza A -started on Tamiflu -WBC higher from steroids but bandemia resolved. Bandemia noted - bone marrow strain/suppression from viral illness? -continue supportive care -continue with Robitussin and nebulizer treatments -wean O2 to keep SpO2>93% still 90% on 1L, will get home o2 eval today, d/c later today vs tomorrow (3) COPD (chronic obstructive pulmonary disease): Code(s): J44.9 - Chronic obstructive pulmonary disease, unspecified Status: Acute Assessment and Plan: [place] patient with COPD exacerbation. -continue Solu-Medrol. -continue with nebulizer treatments -wean steroids (4) Hypertension: Code(s): I10 - Essential (primary) hypertension Status: Acute Assessment and Plan: Patient's blood pressure was reviewed on 07/15 Blood pressure better controlled and stable Will continue current medications. (5) History of coronary artery disease: Code(s): Z86.79 - Personal history of other diseases of the circulatory system Status: Acute Assessment and Plan: CAD with hx of CABG 2016 and stents x 2 in 2018. -continue current medical management with clopidogrel, Coreg and Crestor. (6) Tobacco abuse: Code(s): Z72.0 - Tobacco use Status: Acute Assessment and Plan: Patient states he quit tobacco on admission. He was strongly encouraged to remain tobacco free. He was educated about the benefits of smoking cessation. Plan Hyperkalemia - Repeat potassium better. Lisinopril resumed. Follow. DVT prophylaxis with SCDs GI prophylaxis not indicated Code status full code Subjective Date/time seen: 07/16/22 11:02 Interval history: No overnight events noted. No chest pain or shortness of breath. No nausea, vomiting or diarrhea. No fevers or chills. Review of Systems Review of Systems: 12 point review of systems was assessed and was negative except as noted in the HPI Exam Narrative: General: No acute distress, alert and oriented per baseline HEENT: Atraumatic, normocephalic, mucous membranes moist CV: Regular rate and rhythm, S1, S2 Lungs: Clear to auscultation bilaterally, no rales or crackles noted, no wheezes, good air entry Abdomen: Soft, nontender, nondistended Extremities: Normal to inspection Skin: No rashes noted, no lesions or wounds seen Psych: Euthymic, normal affect Objective Data Vital Signs Vital Signs: Vital Signs - 24 hr 07/15/22 12:00 07/15/22 14:09 07/15/22 16:00 Temperature Pulse Rate 54 L 60 Respiratory Rate 18 Blood Pressure Pulse Oximetry Oxygen Delivery Oxygen Flow Rate 07/15/22 14:00 07/15/22 20:59 07/15/22 21:34 Temperature 96.0 F L 97.5 F L Pulse Rate 87 68 66 Respiratory Rate 20 18 Blood Pressure 102/60 124/70 Pulse Oximetry 90 90 Oxygen Delivery Oxygen Flow Rate 07/15/22 20:59 07/15/22 20:00 07/16/22 00:00 Temperature Pulse Rate 73 56 L Respiratory Rate Blood
--- NOTE | 2022-07-16 15:40 | HOMEO2EVAL ---
Evaluation was performed at [facility] Home Oxygen Evaluation RC: Home Oxygen (O2) Evaluation Start: 07/16/22 11:01 Freq: ONCE Status: Active Protocol: RPE Activity Type Activity Date Activity User E-sign Co-sign Detail Recorded Client Recorded Date Recorded By Document 07/16/22 15:15 GEOFF [email or web address] 07/16/22 15:40 GEOFF Document 07/16/22 15:16 GEOFF [email or web address] 07/16/22 15:40 GEOFF Document 07/16/22 15:20 GEOFF [email or web address] 07/16/22 15:40 [facility] Document 07/16/22 15:30 GEOFF [email or web address] 07/16/22 15:40 GEOFF 07/16/22 07/16/22 07/16/22 15:15 15:16 15:20 Home O2 Evaluation [Oxygen] -Test Phase Resting Resting Exercise -Oxygen Delivery Room Air Nasal Cannula Nasal Cannula -Oxygen Flow Rate (L/min) 1 1 [Pulse Oximetry] -Pulse Oximetry (90-100 %) 87 L 91 90 [Pulse Rate] -Pulse Rate (60-100 beats/min) 56 L 78 [Comments] -Home Oxygen Evaluation Comments Pt requires 1 liter home O2 at rest and with activity [Charges] -Treatment Charges O2 Evaluation - Inpatient 07/16/22 15:30 Home O2 Evaluation [Oxygen] -Test Phase Resting -Oxygen Delivery Nasal Cannula -Oxygen Flow Rate (L/min) 1 [Pulse Oximetry] -Pulse Oximetry (90-100 %) 91 [Pulse Rate] -Pulse Rate (60-100 beats/min) 63 [Comments] -Home Oxygen Evaluation Comments [Charges] -Treatment Charges
--- NOTE | 2022-07-16 15:56 | PCRCNOTE ---
Home O2 eval done, set up with [facility]. Also put in order for home nebulizer, if needed, per progress note
--- NOTE | 2022-07-16 15:58 | PCRCNOTE ---
Tank for transport home is in room, RN notified of home o2 needs.
[2022-07-16] MEDS: guaiFENesin/DEXTROMETHORPHAN 10 ML UDC PO (21:28)
[2022-07-16] MEDS: MELATONIN 3 MG TABLET PO (21:30)
[2022-07-17] VITALS (8 sets, daily range): BP systolic 157; BP diastolic 85; PULSE 56–69; RESP 14–18; TEMP 36.2; O2SAT 94–96
[2022-07-17] MEDS: IPRATROPIUM BR 0.02% INH SOLN 0.5 MG/2.5 ML VIAL INHALATION ×2 (02:50→09:30)
[2022-07-17] MEDS: guaiFENesin/DEXTROMETHORPHAN 10 ML UDC PO ×2 (03:54→08:57)
[2022-07-17] MEDS: ROSUVASTATIN 10 MG TABLET 40 MG PO (08:50)
[2022-07-17] MEDS: lisinopriL 10 MG TABLET PO (08:50)
[2022-07-17] MEDS: carvediloL 6.25 MG TABLET PO (08:50)
[2022-07-17] MEDS: CLOPIDOGREL BISULFATE 75 MG TABLET PO (08:50)
[2022-07-17] MEDS: predniSONE 20 MG TABLET 60 MG PO (08:50)
[2022-07-17] MEDS: ENOXAPARIN 40 MG/0.4 ML SYRINGE SUB-Q (08:51)
[2022-07-17] MEDS: OSELTAMIVIR PHOSPHATE 75 MG CAPSULE PO (08:51)
--- NOTE | 2022-07-17 08:52 | PM.DS ---
DS: Admitting Diagnosis Discharge Date July 17, 2022 Admitting Diagnosis URI symptoms DS: Discharge Diagnosis Discharge Diagnosis (1) Chest pain: Code(s): R07.9 - Chest pain, unspecified Status: Acute Assessment and Plan: Patient has a history of CAD with 4 vessel CABG 2016 as well as 2 coronary stents in 2018. -No cardiac symptoms prior to be becoming ill. -Trop negative x 3. -EKG showing sinus rhythm, LAE and incomplete Rt BBB, delayed R wave progression but no old EKGs to compare -Tele showing no significant dysrhythmias -CTA pulmonary recommended but patient refused -[place] CP related to recent illness and not cardiac disease. Related to eelvated BP? Explained to patient that he will need to follow up with his Assistant News Director but return to ED if he has recurrent chest pain. (2) Influenza A: Code(s): J10.1 - Influenza due to other identified influenza virus with other respiratory manifestations Status: Acute Assessment and Plan: Patient was in good health until he developed CP, SOB and cough and found to have Influenza A -started on Tamiflu -WBC higher from steroids but bandemia resolved. Bandemia noted - bone marrow strain/suppression from viral illness? -continue supportive care -continue with Robitussin and nebulizer treatments -wean O2 to keep SpO2>93% still 90% on 1L, will get home o2 eval today, d/c later today vs tomorrow (3) COPD (chronic obstructive pulmonary disease): Code(s): J44.9 - Chronic obstructive pulmonary disease, unspecified Status: Acute Assessment and Plan: [place] patient with COPD exacerbation. -continue Solu-Medrol. -continue with nebulizer treatments -wean steroids (4) Hypertension: Code(s): I10 - Essential (primary) hypertension Status: Acute Assessment and Plan: Patient's blood pressure was reviewed on 07/15 Blood pressure better controlled and stable Will continue current medications. (5) History of coronary artery disease: Code(s): Z86.79 - Personal history of other diseases of the circulatory system Status: Acute Assessment and Plan: CAD with hx of CABG 2016 and stents x 2 in 2018. -continue current medical management with clopidogrel, Coreg and Crestor. (6) Tobacco abuse: Code(s): Z72.0 - Tobacco use Status: Acute Assessment and Plan: Patient states he quit tobacco on admission. He was strongly encouraged to remain tobacco free. He was educated about the benefits of smoking cessation. Plan Hyperkalemia - Repeat potassium better. Lisinopril resumed. Follow. DVT prophylaxis with SCDs GI prophylaxis not indicated Code status full code DS: Summary Hospital Course Hospital Course: 61-year-old male patient who has a history of having coronary artery disease status post coronary stents and a CABG.? The patient also has COPD with smoking history.? The patient also has been complaining of a cough congestion and rhinorrhea and headache for the past couple days.? The patient felt more short of breath today expressly with minimal exertion and lying flat.? The patient also had midsternal chest pain and he stated that he took his nitro in it resolve the pain.? His blood pressure is elevated today and he did not take his blood pressure medicine.? He does not wear oxygen at home.? White count is normal.? Potassium slightly high at 5.1 and his sodium is slightly low at 135.? Troponins are negative x2.? The patient is positive for influenza.? Chest x-ray was read as mild interstitial edema.? The patient was given aspirin, labetalol, IV fluids, Tessalon Perles, neb treatments and was started on Tamiflu. Patient was given supportive care with steroids, oxygen, nebulizers. Symptoms resolved. He was unable to be weaned off oxygen, home O2 eval was performed. He was discharged in stable condition with close outpatient follow-up, see med rec for details. Time Spent with
== END 2022-07-17 12:00 | disposition home or self-care (01) | DRG 194 ==
LOC: ANHED 20:14 → ANH3MEDSUR 20:29
PROVIDERS: Emergency Medicine; Internal Medicine; Nurse Practitioner; Physician Assistant; Admitting Provider Student in an Organized Health Care Education/Training Program; Emergency Provider Student in an Organized Health Care Education/Training Program; PCP Family Medicine; Visit Provider Student in an Organized Health Care Education/Training Program
DX: J10.1 Influenza due to other identified influenza virus with other respiratory manifestations (principal); J44.1 Chronic obstructive pulmonary disease with (acute) exacerbation; R07.89 Other chest pain; I10 Essential (primary) hypertension; I25.10 Atherosclerotic heart disease of native coronary artery without angina pectoris; E87.5 Hyperkalemia; E78.5 Hyperlipidemia, unspecified; Z20.822 Contact with and (suspected) exposure to COVID-19; I25.2 Old myocardial infarction; Z95.5 Presence of coronary angioplasty implant and graft; Z95.1 Presence of aortocoronary bypass graft; Z87.891 Personal history of nicotine dependence
CPT/HCPCS: 36415; 36600; 71045; 80048; 80053; 82375; 82805; 83050; 83690; 83735; 84100; 84443; 84484; 85025; 85380; 85610; 85730; 87636; 93005; 94618; 94640; 96361; 96374; 96375; 99285; A9270; G0378; J0360; J1650; J2060; J2930; J7030; J7512

== ENCOUNTER 2023-10-23 20:38 | Inpatient (IN) | payer MEDICARE, SELFPAY ==
[2023-10-23] VITALS (9 sets, daily range): BP systolic 146–156; BP diastolic 69–120; PULSE 110–125; RESP 13–32; TEMP 37.7; O2SAT 90–100
--- NOTE | ~2023-10-23 | CT_ITS ---
EXAMINATION: CTA chest PE protocol DATE: 10/23/2023 21:49 INDICATION: Dyspnea. Tachycardia. TECHNIQUE: Computed tomography angiography (CTA) of the chest was performed with 100 mL Omnipaque-350 intravenous contrast timed to evaluate the pulmonary arteries. Coronal maximum intensity projection 3D-reconstructions were created by the technologist. Automated exposure control and iterative reconst ruction technique were employed. The dose-length product was 168.05 mGy-cm. COMPARISON: Chest 2 views 10/23/23 FINDINGS: There is moderate emphysema. There are airspace and groundglass opacities in right middle l obe and right lower lobe, consistent with pneumonia. There is mild atelectasis in lingula. No pleural effusion. The heart size is normal. There are coronary artery calcifications. No pericardial effusio n. There is mild right hilar lymphadenopathy, likely reactive. Calcified mediastinal lymph nodes are consistent with old granulomatous disease. There is no pulmonary embolus. Calcifications in the liver and spleen are consistent with old granulomatous disease. There is mild thoracic spondylosis. IMPRESSION: 1. Pneumonia in right middle lobe and right lower lobe. 2. Moderate emphysema. 3. No pulmonary embolus. 4. Mild right hilar lymphadenopathy, likely reactive. Reviewed, dictated and finalized at location E. CAL RECEPTION SPECIALIST
--- NOTE | ~2023-10-23 | XR_ITS ---
EXAMINATION: XR chest 2V DATE: 10/23/2023 21:24 INDICATION: Shortness of breath. TECHNIQUE: Frontal and lateral views of the chest were obtained. COMPARISON: Chest single view 07/13/2022 FINDINGS: The lungs are hyperexpanded with lucencies, consistent with emphysema. There are airspace o pacities in the lower lung zones. No pleural effusion or pneumothorax. The heart size is normal. Medi an sternotomy wires and mediastinal surgical clips are seen, likely from prior coronary artery bypass grafting. There is mild chronic anterior wedging of 2 midthoracic vertebral bodies. IMPRESSION: 1. Emphysema. 2. Airspace opacities in the lower lung zones, consistent with atelectasis versus scarring. Reviewed, dictated and finalized at location E. CTOR OF COLLECTIONS AND ARCHIVES IMPRESSION: 1. Emphysema. 2. Airspace opacities in the lower lung zones, consistent with atelectasis vers us scarring.
--- NOTE | 2023-10-23 20:45 | ECG_ITS ---
Measurements Intervals [place] Rate: 121 P: 78 MN: 120 QRS: -7 QRSD: 85 T: 81 QT: 309 QTc: 439 Interpretive Statements SINUS TACHYCARDIA CANNOT RULE OUT SEPTAL INFARCT, AGE INDETERMINATE ST-T WAVE ABNORMALITY IN LATERAL LEADS- CONSIDER ISCHEMIA BASELINE ARTIFACT- I, AVR ABNORMAL ECG COMPARED TO ECG 07/14/2022 08:02:34 SINUS TACHYCARDIA NOW PRESENT ST-T WAVE ABNORMALITY NOW PRESENT Electronically Signed On 10-24-2023 6:31:16 CONVENTIONAL UNDERWRITER by James Atwood D.O.
[2023-10-23 21:02] LABS: Basophils Absolute Auto 0.1 K/mm3 (0.0-0.1); Basophils Percent Auto 0.4 % (0.2-1.2); Eosinophils Percent Auto 0.1 % (0-4.4); Hemoglobin 14.6 g/dL (14.0-18.0); Immature Granulocyte Absolute 0.11 K/mm3 (0.00-0.031); Immature Granulocyte Percent A 0.5 % (0-0.5); Lymphocytes Absolute Auto 1.36 K/mm3 (0.9-3.2); Lymphocytes Percent Auto 6.2 % (18.3-44.2); Mean Corpuscular Hemoglobin 30.7 pg (26-34); Mean Corpuscular Volume 90.3 fl (80-100); Mean Platelet Volume 10.6 fl (7.4-10.4); Monocytes Absolute Auto 1.9 K/mm3 (0.1-0.6); Monocytes Percent Auto 8.7 % (2.6-8.5); Neutrophils Absolute Auto 18.4 K/mm3 (1.3-6.7); Neutrophils Percent Auto 84.1 % (45.5-73.1); Platelet Count Result 192 k/mm3 (150-375); Red Blood Count 4.76 M/mm3 (4.6-6.20); White Blood Count 21.9 K/mm3 (4.5-10.0)
[2023-10-23 21:15] LABS: Alanine Aminotransferase 28 U/L (6-50); Albumin Level 4.5 g/dL (3.5-5.1); Alkaline Phosphatase 65 U/L (38-126); Anion Gap 10 mmol/L (8-16); Aspartate Amino Transferase 32 U/L (17-59); Bilirubin,Total 2.1 mg/dL (0.2-1.3); Blood Urea Nitrogen 16 mg/dL (9-20); Calcium 9.2 mg/dL (8.4-10.2); Carbon Dioxide 24 mmol/L (22-30); Chloride 97 mmol/L (98-107); Estimated CRCL calculation 67 ml/min; Estimated Glomerular Filt Rate > 60; Glucose 121 mg/dL (65-110); Potassium 3.6 mmol/L (3.4-5.0); Sodium 131 mmol/L (137-145)
[2023-10-23 21:24] LABS: Anisocytosis 1+ (NORMAL); Hypochromasia 1+ (NORMAL); Large Platelets Present
[2023-10-23 21:25] LABS: Schistocytes None Seen (NORMAL)
--- NOTE | 2023-10-23 21:34 | ED.SOB ---
HPI - SOB/Dyspnea General Chief Complaint: Shortness of Breath/Dyspnea <Madeleine Shane PA-C - Last Filed: 10/24/23 00:53> Stated Complaint: dyspnea <Madeleine Shane PA-C - Last Filed: 10/24/23 00:53> Time Seen by Provider: 10/23/23 20:58 <Madeleine Shane PA-C - Last Filed: 10/24/23 00:53> History of Present Illness HPI Narrative: 63-year-old male with a history of CAD, s/p CABG in 2016, s/p stent placement in 2018, COPD, hypertension reports for evaluation for dyspnea. Patient states he started feeling unwell yesterday, he when out and ran errands today and then around 8:00 p.m. he began to feel very short of breath. States he had a pulse ox at home and checked his oxygen and was 82%. He called 911 and arrived to the ED via EMS. He was started on 2 L nasal cannula with improvement to 95% oxygen saturations. He received a DuoNeb EN route and reports improvement. He reports a cough and states he has some chest pain that only occurs when coughing. The chest pain is nonradiating. Denies abdominal pain, nausea vomiting, diarrhea, dysuria or hematuria, lower extremity edema, history of CHF. His refractory repairer is Dr. [facility] at [facility]. He is scheduled for carotid ultrasounds and pulmonary function testing in the upcoming week. <Madeleine Shane PA-C - Last Filed: 10/24/23 00:53> Related Data Home Medications: Home Medications Medication Instructions Recorded Confirmed clopidogrel 75 mg tablet 75 mg PO DAILY 04/10/20 10/24/23 rosuvastatin 40 mg tablet 40 mg PO DAILY 04/10/20 10/24/23 Tylenol 650 mg PO Q6H PRN Pain 07/13/22 10/24/23 carvedilol 6.25 mg PO BID 07/13/22 10/24/23 nitroglycerin 0.4 mg sublingual 0.4 mg sublingual Q5-15M PRN Chest 07/13/22 10/24/23 tablet Pain albuterol sulfate 90 mcg/actuation 2 puff inhalation Q6H PRN Wheezing 10/24/23 10/24/23 aerosol inhaler losartan 50 mg tablet 50 mg PO DAILY 10/24/23 10/24/23 <Madeleine Shane PA-C - Last Filed: 10/24/23 00:53> Allergies/Adverse Reactions: Allergies Allergy/AdvReac Type Severity Reaction Status Date / Time No Known Allergies Allergy Verified 07/13/22 16:48 <Madeleine Shane PA-C - Last Filed: 10/24/23 00:53> Review of Systems Review of Systems: CONSTITUTIONAL: Denies fever, chills, or sweats. EYES: Denies visual changes, redness, or discharge. ENT: Denies rhinorrhea, congestion, sore throat, or otalgia. CARDIOVASCULAR: See HPI RESPIRATORY: See HPI GASTROINTESTINAL: Denies abdominal pain, nausea, vomiting, or diarrhea. GENITOURINARY: Denies dysuria or hematuria. SKIN: Denies rash or itching. MUSCULOSKELETAL: Denies back pain, joint pain, or myalgia. NEUROLOGIC: Denies headache, numbness, or weakness. PSYCHIATRIC: Denies anxiety or depression. <Madeleine Shane PA-C - Last Filed: 10/24/23 00:53> [facility] Past Medical History Medical History: Medical History Acute medial meniscus tear of left knee Contusion, knee and lower leg (05/20/20) COPD (chronic obstructive pulmonary disease) Coronary artery disease Heart attack History of coronary artery disease Hyperlipidemia Hypertension Vision abnormalities <Madeleine Shane PA-C - Last Filed: 10/24/23 00:53> Surgical History Surgical History: Surgical History H/O heart artery stent 2 Hx of CABG 4 <Madeleine Shane PA-C - Last Filed: 10/24/23 00:53> Family History Family History: Family History Grandparent Family history of malignant neoplasm Family history of emphysema Sibling Family history of lung cancer Father Family history of coronary artery disease Mother Family history of coronary artery disease Other Heart disease Hypertension <Madeleine Shane PA-C - Last Filed: 10/24/23 00:53> Social History Social History: So
[2023-10-23 21:38] LABS: Influenza A QL RT-PCR Positive (Negative); Influenza B QL RT-PCR Negative (Negative); RSV RNA, RT-PCR Negative (Negative); SARS-CoV-2 RNA PCR Negative (Negative)
[2023-10-23] MEDS: IPRATROPIUM 0.5 MG/ALBUTEROL SULFATE 2.5 MG AMPUL.NEB 3 ML INHALATION ×3 (21:51→22:24)
[2023-10-23] MEDS: ACETAMINOPHEN 500 MG TABLET 1000 MG PO (22:03)
[2023-10-23] MEDS: SODIUM CHLORIDE 0.9% IV 1,000 ML 999 ML IV CONT ×2 (22:03→22:57)
[2023-10-23] MEDS: methylPREDNISolone SOD SUCC 125 MG VIAL IV PUSH (22:03)
[2023-10-23 22:08] LABS: Base Excess ABG 0.7 mEq/l (+/-2.0); Fractional Inspired Oxygen 24 %; Oxygen Content ABG 17.6 %vol (16.0-22.0); Oxygen Saturation ABG 91.9 % (95.0-100.0); Oxyhemoglobin 88.8 % THb (90.0-100.0); PCO2 ABG 34.4 mmHg (35.0-45.0); PO2 ABG 58.2 mmHg (80.0-100.0); PO2 FiO2 Ratio Arterial Blood 2.42 %; Total Hemoglobin 14.1 g/dL (12.0-18.0); pH ABG 7.461 (7.350-7.450)
[2023-10-23 22:09] LABS: Lipase 27 U/L (23-300)
[2023-10-23 22:09] LABS: Device NASAL CANNULA; Modified Allen's Test Pass; Site Drawn RIGHT RADIAL
[2023-10-23 22:24] LABS: Lactic Acid Reflex 1.7 mmol/L (0.7-2.0)
[2023-10-23 22:25] LABS: NT Pro B Type Natriuretic Pept 383 pg/mL (19.9-100); Troponin I 0.035 ng/mL (0.000-0.034)
[2023-10-23] MEDS: AZITHROMYCIN 500 MG/NS 250 ML 500 MG/250 ML BAG 250 MG IVPB (22:57)
[2023-10-24] VITALS (21 sets, daily range): BP systolic 111–137; BP diastolic 53–68; PULSE 63–108; RESP 15–24; TEMP 36.2–36.6; O2SAT 92–100; BMI 18.6
[2023-10-24] MEDS: SODIUM CHLORIDE 0.9% IV 1,000 ML 150 ML IV CONT (00:09)
--- NOTE | 2023-10-24 00:09 | PC.NURSE ---
Per EDP PA Madeleine give 500mL bolus of mx fluids then go to prescribed rate.
--- NOTE | 2023-10-24 00:25 | ECG_ITS ---
Measurements Intervals [place] Rate: 94 P: 77 DE: 150 QRS: 19 QRSD: 93 T: 80 QT: 370 QTc: 464 Interpretive Statements SINUS RHYTHM POSSIBLE LEFT ATRIAL ENLARGEMENT INCOMPLETE RIGHT BUNDLE BRANCH BLOCK CANNOT RULE OUT SEPTAL INFARCT, AGE INDETERMINATE BORDERLINE ST-T WAVE ABNORMALITY- LAT/HIGH LAT LEADS BASELINE WANDER- III, V3-V6 ABNORMAL ECG COMPARED TO ECG 10/23/2023 20:50:49 SINUS RHYTHM NOW PRESENT Electronically Signed On 10-24-2023 6:39:05 ADULT BASIC EDUCATION TEACHER by James Atwood D.O.
--- NOTE | 2023-10-24 00:39 | PM.IMHP ---
H&P: HPI History of Present Illness Date/Time: 10/24/23 00:39 Chief Complaint: shortness of breath Narrative: This is a 63-year-old male with past medical history significant for tobacco dependence, COPD, coronary artery disease, hypertension. Patient presents to the emergency room due to night sweats, cough productive of sputum, worsening shortness of breath, poor appetite, chills, for the last 2 days or so. Preliminary workup was significant for CT angiogram was negative for acute pulmonary embolism, showed right middle lobe pneumonia. patient tested positive for influenza Patient is been admitted for further evaluation management and treatment. EXAMINATION: CTA chest PE protocol DATE: 10/23/2023 21:49 INDICATION: Dyspnea. Tachycardia. TECHNIQUE: Computed tomography angiography (CTA) of the chest was performed with 100 mL Omnipaque-350 intravenous contrast timed to evaluate the pulmonary arteries. Coronal maximum intensity projection 3D-reconstructions were created by the technologist. Automated exposure control and iterative reconstruction technique were employed. The dose-length product was 168.05 mGy-cm. COMPARISON: Chest 2 views 10/23/23 FINDINGS: There is moderate emphysema. There are airspace and groundglass opacities in right middle lobe and right lower lobe, consistent with pneumonia. There is mild atelectasis in lingula. No pleural effusion. The heart size is normal. There are coronary artery calcifications. No pericardial effusion. There is mild right hilar lymphadenopathy, likely reactive. Calcified mediastinal lymph nodes are consistent with old granulomatous disease. There is no pulmonary embolus. Calcifications in the liver and spleen are consistent with old granulomatous disease. There is mild thoracic spondylosis. IMPRESSION: 1. Pneumonia in right middle lobe and right lower lobe. 2. Moderate emphysema. 3. No pulmonary embolus. 4. Mild right hilar lymphadenopathy, likely reactive. EXAMINATION: XR chest 2V DATE: 10/23/2023 21:24 INDICATION: Shortness of breath. TECHNIQUE: Frontal and lateral views of the chest were obtained. COMPARISON: Chest single view 07/13/2022 FINDINGS: The lungs are hyperexpanded with lucencies, consistent with emphysema. There are airspace opacities in the lower lung zones. No pleural effusion or pneumothorax. The heart size is normal. Median sternotomy wires and mediastinal surgical clips are seen, likely from prior coronary artery bypass grafting. There is mild chronic anterior wedging of 2 midthoracic vertebral bodies. IMPRESSION: 1. Emphysema. 2. Airspace opacities in the lower lung zones, consistent with atelectasis versus scarring. Review of Systems Review of Systems: Cough productive of sputum, shortness of breath, chills, poor appetite Constitutional: Constitutional: Reports chills, Reports night sweats and Reports poor appetite Eyes: Eyes: Denies change in vision ENT: Denies dysphagia, Denies vertigo, Denies dizziness and Denies odynophagia Cardiovascular: Cardiovascular: Denies chest pain, Denies radiating jaw, neck or arm pain and Denies palpitations Respiratory: Respiratory: Reports change in phlegm color, Reports chest congestion, Reports cough, Reports excessive phlegm production and Reports dyspnea Gastrointestinal: Gastrointestinal: Denies abdominal pain, Denies dyspepsia, Denies heartburn, Denies diarrhea, Denies nausea and Denies vomiting Genitourinary: Genitourinary: Denies dysuria Musculoskeletal: Musculoskeletal: Reports myalgias Integumentary/Breasts: Skin/Breast: Denies rash Neurologic: Denies focal weakness and Denies Sensory deficit (Neuro) Psychiatric: Psychiatric: Reports no additional psychiatric complaints and Reports as per HPI Endocrine: Endocrine: Denies cold intolerance, Denies fatigue, Denies flushing, Denies heat intolerance, Denies polyphagia, Denies polydipsia and Denies palpitations Hematologic/Lymphatic: Hemato
[2023-10-24] MEDS: BENZONATATE 100 MG CAPSULE 200 MG PO (00:49)
[2023-10-24 00:56] LABS: INR 1.2; Prothrombin Time 15.5 Seconds (11.1-14.7)
[2023-10-24 00:57] LABS: Partial Thromboplastin Time 29.8 SECONDS (22.3-36.8)
[2023-10-24 01:12] LABS: Troponin I 0.206 ng/mL (0.000-0.034)
--- NOTE | 2023-10-24 02:24 | ECG_ITS ---
Measurements Intervals [place] Rate: 77 P: 74 UT: 164 QRS: 24 QRSD: 89 T: 68 QT: 417 QTc: 475 Interpretive Statements SINUS RHYTHM LEFT ATRIAL ENLARGEMENT INCOMPLETE RIGHT BUNDLE BRANCH BLOCK CANNOT RULE OUT SEPTAL INFARCT, AGE INDETERMINATE ABNORMAL ECG COMPARED TO ECG 10/24/2023 00:39:28 NO SIGNIFICANT CHANGES Electronically Signed On 10-24-2023 6:39:44 RADIOLOGIST by James Atwood D.O.
--- NOTE | 2023-10-24 03:45 | ADMGEN ---
This patient, Tony Borrego, was admitted to IMU Room 202-. Patient/family oriented to hospital policies and general routines including ID bracelet, bed and alarms, visiting hours, pain management, procedures, bathroom and other care routines, personal items, smoking policy, room service/diet, and visiting hours. Information on how to activate the Rapid Response Team has been discussed. Patient/Family are encouraged to report perceived risks to care and to ask questions if they do not understand what they are told or what they should do.
[2023-10-24 04:25] LABS: Troponin I 0.158 ng/mL (0.000-0.034)
[2023-10-24 06:39] LABS: Appearance Urine Clear (Clear); Bacteria Urine None Seen /hpf; Bilirubin Urine Negative (Negative); Color Urine Dark Yellow (Yellow); Glucose Urine UA 2+ mg/dL (Negative); Ketones Urine Negative (Negative); Leukocyte Esterase Ur Negative LEU/UL (Negative); Nitrate Urine Negative (Negative); Non Pathogenic Casts 0-2; Protein Urine 1+ mg/dL (Negative); Squamous Epithelial Cell Urine None seen /hpf (Few); WBC Urine 0-5 /hpf; pH Urine 5.5 (5.0-9.0)
[2023-10-24 06:40] LABS: Specific Grav Ur 1.067 (1.001-1.035)
[2023-10-24 06:41] LABS: Add Urine Microscopic? YES
[2023-10-24] MEDS: OSELTAMIVIR PHOSPHATE 75 MG CAPSULE PO ×2 (08:17→20:55)
--- NOTE | 2023-10-24 09:57 | PM.CNCAR ---
Assessment and Plan Assessment and plan (1) Troponin I above reference range: Code(s): R79.89 - Other specified abnormal findings of blood chemistry Status: Acute Plan This is a 63-year-old man with chronic coronary artery disease status post both surgical and percutaneous revascularization. He clinically appears to be stable from that perspective. He is hospitalized now with what appears to be influenza pneumonia. He tested positive for influenza and has right middle lobe and right lower lobe pneumonia by CT scan. Clearly has underlying significant chronic lung disease as well from ongoing cigarette smoking. His oxygen saturations were rather low at home so he appropriately came to the hospital. In this setting troponin levels were sampled and not surprisingly there are slightly elevated. This is not an example of acute coronary syndrome rather an example of so called type 2 infarction related to hypoxemia particularly with significant underlying coronary artery disease. At this point the primary team should focus on treating his pneumonia/lung disease I do not believe he needs further cardiac workup year he does have appropriate cardiac follow-up scheduled with his physicians at [facility] and for that reason we will not schedule redundant follow-up with our office here following discharge. Jovany Delcid MD [facility] History of Present Illness History of Present Illness Consult date/time: 10/24/23 09:57 Reason For Visit: Pneumonia,Sepsis Narrative: This is a 63-year-old man I am seeing at the request of the hospitalist because of elevated troponin level. He is not known to me prior to this encounter I did review his chart have proper prior to seeing him in consultation this morning. He came to [facility] yesterday with symptoms of shortness of breath and coughing that started several days ago. He apparently has significant chronic lung disease and ongoing cigarette smoking and for that reason has a pulse oximeter at home. He noticed yesterday evening he became significantly short of breath and he was very concerned about whether he is going to survive or not. He said his oxygen saturation was in the range of 80% at which time he and his decided it was necessary to come to the emergency room for evaluation and treatment. In the emergency room his evaluation by CT scan showed evidence of right middle lobe and right lower lobe pneumonia which are really own appreciate on my personal review his chest x-ray. He does have chest x-ray findings of significant emphysema and hyperinflation. He has a leukocytosis with a white count over 20,000 and was placed on antibiotics as well as a nasal cannula oxygen. In this setting troponin levels were sampled they went from just out of normal range to 0.2 and then down to 0.1. He is not reporting any symptoms of chest pain. His electrocardiogram on arrival showed sinus tachycardia with a mild nonspecific ST and T-wave abnormality. As his oxygen saturations improved his heart rate was no longer tachycardic in his ECG continues to show no evidence of acute cardiac injury. This gentleman is known to have multivessel coronary artery disease and follows with cardiology at [facility]. He was found to have multivessel disease and underwent a per 4 vessel bypass operation back in 2016. He states that he underwent a percutaneous interventional procedure in 2018. He is also known to have some peripheral vascular disease in his carotids that is being followed by his physicians over there as well. His cardiac medical regimen includes carvedilol 6.25 mg q.12 hours clopidogrel 75 mg daily losartan 50 mg daily and rosuvastatin 40 mg daily. 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 Unfortunately continues to smoke heavily. Review of Systems Constitutional: Constitutional: Reports lethargy Eyes: Eyes: Reports no additional eye complaints Cardiovascular: Cardio
--- NOTE | 2023-10-24 12:22 | PM.IMPN ---
Progress Note: A&P Assessment and Plan (1) Pneumonia: Code(s): J18.9 - Pneumonia, unspecified organism Status: Acute Assessment and Plan: admit to IMU patient started on Rocephin and Zithromax cultures in progress supportive care (2) Influenza A: Code(s): J10.1 - Influenza due to other identified influenza virus with other respiratory manifestations Status: Acute Assessment and Plan: started Tamiflu (3) Acute respiratory failure with hypoxia: Code(s): J96.01 - Acute respiratory failure with hypoxia Status: Acute Assessment and Plan: on supplemental oxygen by nasal cannula Wean as tolerated (4) COPD (chronic obstructive pulmonary disease): Code(s): J44.9 - Chronic obstructive pulmonary disease, unspecified Status: Acute Assessment and Plan: Bronchodilator Rx (5) Tobacco abuse: Code(s): Z72.0 - Tobacco use Status: Acute Assessment and Plan: Nicotine patch as needed patient states that he quit yesterday (6) Troponin I above reference range: Code(s): R79.89 - Other specified abnormal findings of blood chemistry Status: Acute Assessment and Plan: Cardiology: This is not an example of acute coronary syndrome rather an example of so called type 2 infarction related to hypoxemia particularly with significant underlying coronary artery disease.? At this point the primary team should focus on treating his pneumonia/lung disease I do not believe he needs further cardiac workup year he does have appropriate cardiac follow-up scheduled with his physicians at [facility] and for that reason we will not schedule redundant follow-up with our office here following discharge. Plan 1. Continue Oseltamivir 2. Continue Ceftriaxone, Azithromycin 3. Cardiology consulted; no further interventions. 4. Time Spent With Patient Time with patient: 25 - 35 minutes Subjective Date/time seen: 10/24/23 12:22 Interval history: Seen and examined; He was admitted for and is being managed for NSTEMi, pneumonia and hypoxia. Review of Systems Review of Systems: Cough productive of sputum, shortness of breath, chills, poor appetite Constitutional: Constitutional: Reports chills, Denies fatigue, Reports night sweats and Reports poor appetite Eyes: Eyes: Denies change in vision ENT: Denies dysphagia, Denies vertigo, Denies dizziness and Denies odynophagia Cardiovascular: Cardiovascular: Denies chest pain, Denies radiating jaw, neck or arm pain, Denies palpitations and Reports dyspnea Respiratory: Respiratory: Reports change in phlegm color, Reports chest congestion, Reports cough, Reports excessive phlegm production and Reports dyspnea Gastrointestinal: Gastrointestinal: Denies abdominal pain, Denies dysphagia, Denies dyspepsia, Denies heartburn, Denies diarrhea, Denies nausea, Denies odynophagia and Denies vomiting Genitourinary: Genitourinary: Denies dysuria Musculoskeletal: Musculoskeletal: Reports myalgias Integumentary/Breasts: Skin/Breast: Denies rash Neurologic: Denies vertigo, Denies dizziness, Denies focal weakness and Denies Sensory deficit (Neuro) Psychiatric: Psychiatric: Reports no additional psychiatric complaints and Reports as per HPI Endocrine: Endocrine: Denies cold intolerance, Denies fatigue, Denies flushing, Denies heat intolerance, Denies polyphagia, Denies polydipsia and Denies palpitations Hematologic/Lymphatic: Hematologic/Lymphatic: Reports no additional hematologic/lymphatic complaints and Reports as per HPI Allergic/Immunologic: Allergic/Immunologic: Reports no additional allergic/immunologic complaints and Reports as per HPI Exam Narrative: patient is laying in a stretcher Const: General: comfortable, no acute distress, well developed, ill appearing acutely, tired appearing, average body habitus and thin Nutritional Appearance: average body habitus and thin Orientatio
[2023-10-24] MEDS: carvediloL 6.25 MG TABLET PO (13:01)
[2023-10-24] MEDS: AZITHROMYCIN 500 MG/NS 250 ML 500 MG/250 ML BAG 125 MG IVPB (21:34)
[2023-10-25] VITALS (12 sets, daily range): BP systolic 131–158; BP diastolic 68–81; PULSE 61–84; RESP 16–20; TEMP 36.4–37.2; O2SAT 92–95
[2023-10-25 04:55] LABS: Basophils Percent Auto 0.1 % (0.2-1.2); Hematocrit 36.8 % (42.0-52.0); Hemoglobin 11.9 g/dL (14.0-18.0); Immature Granulocyte Absolute 0.18 K/mm3 (0.00-0.031); Lymphocytes Absolute Auto 0.79 K/mm3 (0.9-3.2); Lymphocytes Percent Auto 4.2 % (18.3-44.2); Mean Corpuscular HGB Conc 32.3 g/dl (32-36); Mean Corpuscular Hemoglobin 30.3 pg (26-34); Mean Corpuscular Volume 93.6 fl (80-100); Mean Platelet Volume 11.8 fl (7.4-10.4); Monocytes Absolute Auto 1.2 K/mm3 (0.1-0.6); Monocytes Percent Auto 6.2 % (2.6-8.5); Neutrophils Absolute Auto 16.7 K/mm3 (1.3-6.7); Neutrophils Percent Auto 88.5 % (45.5-73.1); Platelet Count Result 169 k/mm3 (150-375); Red Blood Count 3.93 M/mm3 (4.6-6.20); Red Cell Distribution Width 14.3 % (11.5-14.5); White Blood Count 18.9 K/mm3 (4.5-10.0)
[2023-10-25 05:09] LABS: Alanine Aminotransferase 24 U/L (6-50); Albumin Level 3.4 g/dL (3.5-5.1); Alkaline Phosphatase 55 U/L (38-126); Anion Gap 3 mmol/L (8-16); Aspartate Amino Transferase 34 U/L (17-59); Bilirubin,Total 0.7 mg/dL (0.2-1.3); Blood Urea Nitrogen 18 mg/dL (9-20); Calcium 8.9 mg/dL (8.4-10.2); Carbon Dioxide 26 mmol/L (22-30); Chloride 105 mmol/L (98-107); Estimated CRCL calculation 65 ml/min; Estimated Glomerular Filt Rate > 60; Glucose 99 mg/dL (65-110); Potassium 4.2 mmol/L (3.4-5.0); Sodium 134 mmol/L (137-145)
[2023-10-25] MEDS: OSELTAMIVIR PHOSPHATE 75 MG CAPSULE PO ×2 (08:24→20:35)
[2023-10-25] MEDS: carvediloL 6.25 MG TABLET PO ×2 (08:24→18:53)
[2023-10-25] MEDS: CLOPIDOGREL BISULFATE 75 MG TABLET PO (08:24)
[2023-10-25] MEDS: ROSUVASTATIN 10 MG TABLET 40 MG PO (08:25)
[2023-10-25] MEDS: LOSARTAN POTASSIUM 50 MG TABLET PO (08:25)
--- NOTE | 2023-10-25 12:26 | PM.IMPN ---
Progress Note: A&P Assessment and Plan (1) Troponin I above reference range: Code(s): R79.89 - Other specified abnormal findings of blood chemistry Status: Acute (2) Acute hypoxemic respiratory failure: Code(s): J96.01 - Acute respiratory failure with hypoxia Status: Acute (3) Influenza A: Code(s): J10.1 - Influenza due to other identified influenza virus with other respiratory manifestations Status: Acute (4) Community acquired pneumonia: Qualifiers: Laterality: right Lung location: middle lobe of lung Qualified Code(s): J18.9 - Pneumonia, unspecified organism Code(s): J18.9 - Pneumonia, unspecified organism Status: Acute Plan # influenza -diagnosed 10/22 flu A positive -Tamiflu 10/23- # right middle lobe community-acquired pneumonia -patient has cough with sputum production, consistent with pneumonia, persistent leukocytosis (down from 22k to 19k) -antibiotics: Continue Rocephin, azithromycin -with persistent leukocytosis will continue IV antibiotics and discharge in next day or 2 -blood cultures NGTD # elevated troponin -likely secondary to supply demand from the pneumonia. 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 nitroglycerin available -continue home Plavix # chronic conditions -hyperlipidemia: Crestor -essential hypertension: Cozaar, Coreg Diet: Heart healthy diet DVT prophylaxis: Code status: Full code Disposition: Likely home in 1-2 days Time Spent With Patient Time: 35 minutes Subjective Date/time seen: 10/25/23 12:26 Interval history: Patient seen and examined, he is breathing comfortably on room air. He is on Tamiflu for influenza, Rocephin azithromycin for community-acquired pneumonia right middle lobe. Explained to him his leukocytosis improving but still elevated at about 19k. Will benefit from IV antibiotics. Patient is agreeable. Patient denies fever, chills, nausea, vomiting or diarrhea, chest pain, shortness of breath. Review of Systems Review of Systems: 10 point ROS complete, negative other than what is specified in HPI. Exam Narrative: - GENERAL: Pleasant male in no acute distress. Well-nourished. - EYES: EOMI. Anicteric. - HENT: Moist mucous membranes. - LUNGS: Clear to auscultation bilaterally, no wheezing, rhonchi, or rales. - CARDIOVASCULAR: Regular rate and rhythm. No murmur. No JVD. - ABDOMEN: Soft, non-tender and non-distended. No palpable masses. - EXTREMITIES: No edema. Peripheral pulses 2+. Non-tender. - NEUROLOGIC: No focal neurological deficits. CN II-XII grossly intact. - PSYCHIATRIC: Awake, Alert and oriented x 3. Appropriate mood and affect. - SKIN: No rashes or lesions. Warm. - LYMPH: No cervical lymphadenopathy. Objective Data Vital Signs Vital Signs: Vital Signs - 24 hr 10/24/23 13:01 10/24/23 13:42 10/24/23 14:00 Temperature Pulse Rate 91 81 77 Respiratory Rate Blood Pressure Pulse Oximetry 95 Oxygen Delivery Room Air 10/24/23 16:00 10/24/23 16:00 10/24/23 20:23 Temperature 36.4 C 36.3 C L Pulse Rate 74 75 76 Respiratory Rate 20 20 Blood Pressure 124/67 124/64 Pulse Oximetry 93 94 Oxygen Delivery 10/24/23 23:53 10/24/23 20:00 10/24/23 20:00 Temperature 36.4 C L Pulse Rate 70 63 77 Respiratory Rate 20 Blood Pressure 137/68 Pulse Oximetry 96 96 Oxygen Delivery Room Air 10/25/23 00:00 10/24/23 21:50 10/25/23 04:00 Temperature Pulse Rate 71 61 Respiratory Rate Blood Pressure Pulse Oximetry 96 Oxygen Delivery Room Air 10/25/23 07:46 10/25/23 08:24 10/25/23 08:00 Temperature 36.4 C L Pulse Rate 72 69 Respiratory Rate 16 Blood Pressure 131/71 Pulse Oximetry 93 Oxygen Delivery Room Air 10/25/23 11:07 10/25/23 08:00 10/25/23 12:00 Temperature 36.7 C Pulse Rate
[2023-10-25] MEDS: AZITHROMYCIN 500 MG/NS 250 ML 500 MG/250 ML BAG 125 MG IVPB (20:36)
[2023-10-26] VITALS: PULSE 80
--- NOTE | 2023-10-26 01:53 | PC.NURSE ---
Daylight Savings Time For Daylight Savings Time Ending in the Fall - Clocks are moved back. For Daylight Savings Time Beginning in the Spring - Clocks are moved ahead. For [facility], the time of change occurs at 0200 hrs. Time is taken from the fire observer. This entry on the patient's chart recognizes the change in time reflected during documentation. Example: 2 entries for vital signs may be charted for 0200 hrs.
[2023-10-26 04:00] VITALS: PULSE 78
[2023-10-26 04:42] LABS: Basophils Percent Auto 0.3 % (0.2-1.2); Eosinophils Percent Auto 0.3 % (0-4.4); Hematocrit 40.5 % (42.0-52.0); Immature Granulocyte Absolute 0.03 K/mm3 (0.00-0.031); Immature Granulocyte Percent A 0.3 % (0-0.5); Lymphocytes Absolute Auto 1.31 K/mm3 (0.9-3.2); Lymphocytes Percent Auto 11.8 % (18.3-44.2); Mean Corpuscular HGB Conc 32.1 g/dl (32-36); Mean Corpuscular Hemoglobin 30.3 pg (26-34); Mean Corpuscular Volume 94.4 fl (80-100); Mean Platelet Volume 11.6 fl (7.4-10.4); Monocytes Absolute Auto 1.3 K/mm3 (0.1-0.6); Monocytes Percent Auto 11.3 % (2.6-8.5); Neutrophils Absolute Auto 8.4 K/mm3 (1.3-6.7); Platelet Count Result 204 k/mm3 (150-375); Red Blood Count 4.29 M/mm3 (4.6-6.20); Red Cell Distribution Width 14.2 % (11.5-14.5); White Blood Count 11.1 K/mm3 (4.5-10.0)
[2023-10-26 04:54] VITALS: BP 137/68; PULSE 73; RESP 18; TEMP 36.8; O2SAT 97
[2023-10-26 04:59] LABS: Alanine Aminotransferase 33 U/L (6-50); Albumin Level 3.6 g/dL (3.5-5.1); Alkaline Phosphatase 57 U/L (38-126); Anion Gap 1 mmol/L (8-16); Aspartate Amino Transferase 36 U/L (17-59); Bilirubin,Total 0.7 mg/dL (0.2-1.3); Blood Urea Nitrogen 18 mg/dL (9-20); Carbon Dioxide 28 mmol/L (22-30); Chloride 106 mmol/L (98-107); Estimated CRCL calculation 64 ml/min; Estimated Glomerular Filt Rate > 60; Glucose 87 mg/dL (65-110); Sodium 135 mmol/L (137-145)
[2023-10-26 07:48] VITALS: BP 135/70; PULSE 68; RESP 24; TEMP 36.5; O2SAT 94
[2023-10-26 08:00] VITALS: PULSE 80
[2023-10-26 08:19] VITALS: PULSE 68
[2023-10-26] MEDS: CLOPIDOGREL BISULFATE 75 MG TABLET PO (08:19)
[2023-10-26] MEDS: ROSUVASTATIN 10 MG TABLET 40 MG PO (08:19)
[2023-10-26] MEDS: LOSARTAN POTASSIUM 50 MG TABLET PO (08:19)
[2023-10-26] MEDS: carvediloL 6.25 MG TABLET PO (08:19)
[2023-10-26] MEDS: OSELTAMIVIR PHOSPHATE 75 MG CAPSULE PO (08:19)
--- NOTE | 2023-10-26 10:36 | PM.DS ---
DS: Admitting Diagnosis Discharge Date 10/26/23 Admitting Diagnosis Influenza A, community-acquired pneumonia DS: Discharge Diagnosis Discharge Diagnosis (1) Influenza A: Code(s): J10.1 - Influenza due to other identified influenza virus with other respiratory manifestations Status: Acute (2) Community acquired pneumonia: Qualifiers: Laterality: right Lung location: middle lobe of lung Qualified Code(s): J18.9 - Pneumonia, unspecified organism Code(s): J18.9 - Pneumonia, unspecified organism Status: Acute (3) Tobacco abuse: Code(s): Z72.0 - Tobacco use Status: Acute (4) Troponin I above reference range: Code(s): R79.89 - Other specified abnormal findings of blood chemistry Status: Acute Plan # influenza -diagnosed 10/22 flu A positive -Tamiflu 10/23- -Rx for Tamiflu 3 more days give # right middle lobe community-acquired pneumonia -patient has cough with sputum production, consistent with pneumonia, persistent leukocytosis (down from 22k to 19k) -antibiotics: Continue Rocephin, azithromycin -Rx for 3 days of cefuroxime and azithromycin given to complete 5 day antibiotic course -blood cultures NGTD # elevated troponin -likely secondary to supply demand from the pneumonia.? No active chest pain -troponin from 0.035-0.158 -cardiology consult:? 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 nitroglycerin available -continue home Plavix # chronic conditions -hyperlipidemia: Crestor -essential hypertension: Cozaar, Coreg Diet:??Heart healthy diet DVT prophylaxis: ambulatory Code status:??Full code Disposition:? home DS: Summary Hospital Course Reason for hospitalization: Pneumonia and influenza Hospital Course: Patient is a 63-year-old male with past history of COPD, CAD status post stents, CABG x4, hyperlipidemia, essential hypertension who presents to ED with complaints of dyspnea. He presented with significant leukocytosis WBC 21.[address] scan was negative for PE but was positive for right middle lobe pneumonia. He was influenza A positive on 10/22. Patient was treated with Tamiflu for the influenza a, Rx for 3 more days given at time of discharge for 5 day course. With IV antibiotics his leukocytosis normalized and he we discharged with cefuroxime and azithromycin to complete 5 day antibiotic course. Of note he had elevated troponin which is likely secondary to supply demand from the pneumonia. Cardiology consult recommended treatment underlying pneumonia. He will follow-up with his PCP in 1 week. Patient has routine pulmonology and cardiology follow-up at [facility] which he will keep. At time of discharge patient's labs stable, vitals stable, patient is stable for discharge home. Patient understands and agrees with plan. Time Spent with Patient Time attestation: Total time spent providing and/or coordinating discharge services: 35 minutes Exam Narrative: - GENERAL:? Pleasant male in no acute distress. Well-nourished. - EYES: EOMI. Anicteric. - HENT: Moist mucous membranes. - LUNGS: Clear to auscultation bilaterally, no wheezing, rhonchi, or rales. - CARDIOVASCULAR: Regular rate and rhythm. No murmur. No JVD. - ABDOMEN: Soft, non-tender and non-distended. No palpable masses. - EXTREMITIES: No edema. Peripheral pulses 2+. Non-tender. - NEUROLOGIC: No focal neurological deficits. CN II-XII grossly intact. - PSYCHIATRIC: Awake, Alert and oriented x 3. Appropriate mood and affect. - SKIN: No rashes or lesions. Warm. - LYMPH: No cervical lymphadenopathy.? DS: Data Data Completed and Pending Labs on day of discharge: Labs from last 24 hours 10/26/23 03:42 WBC 11.1 H RBC 4.29 L Hgb 13.0 L Hct 40.5 L MCV 94.4 MCH 30.3 MCHC 32.1 RDW 14.2 Plt Count 204 MPV 11.6 H Immature Gran % (Auto) 0.3 Neut % (Auto) 76.0 H Lymph % (Auto) 11.8 L [place] % (Auto) 11.3 H Eos % (Auto) 0.3 Baso
== END 2023-10-26 12:10 | disposition home or self-care (01) | DRG 193 ==
LOC: ANHED 10-24 00:49 → ANHIMU 10-24 07:05
PROVIDERS: Emergency Medicine; Internal Medicine; Admitting Provider Internal Medicine; Emergency Provider Physician Assistant; PCP Nurse Practitioner; Visit Provider Internal Medicine
DX: J10.00 Influenza due to other identified influenza virus with unspecified type of pneumonia (principal); I21.A1 Myocardial infarction type 2; J96.01 Acute respiratory failure with hypoxia; I25.10 Atherosclerotic heart disease of native coronary artery without angina pectoris; J44.9 Chronic obstructive pulmonary disease, unspecified; E78.5 Hyperlipidemia, unspecified; I10 Essential (primary) hypertension; R79.89 Other specified abnormal findings of blood chemistry; F17.210 Nicotine dependence, cigarettes, uncomplicated; I25.2 Old myocardial infarction; Z95.5 Presence of coronary angioplasty implant and graft; Z95.1 Presence of aortocoronary bypass graft; Z79.02 Long term (current) use of antithrombotics/antiplatelets
CPT/HCPCS: 36415; 36600; 71046; 71275; 80053; 81001; 82805; 83605; 83690; 83880; 84484; 85025; 85610; 85730; 87040; 87637; 93005; 94640; 96361; 96365; 96367; 96375; 99285; A9270; J0456; J0696; J2930; J7030; Q9967

== ENCOUNTER 2023-10-28 09:23 | Inpatient (IN) | payer MEDICARE, SELFPAY ==
[2023-10-28] VITALS (9 sets, daily range): BP systolic 134–173; BP diastolic 69–85; PULSE 60–71; RESP 14–20; TEMP 36.2–36.9; O2SAT 94–98; BMI 19.8
--- NOTE | ~2023-10-28 | XR_ITS ---
Clinical Indication: Shortness of breath PA and lateral views of the chest: Comparison: 10/23/2023 Findings: The lungs are clear, without evidence of focal consolidation or pleural effusion. COPD alli brittani present. Cardiomediastinal silhouette is within normal limits. Bones and soft tissues are unremar kable. Impression: Clear lungs. COPD. Reviewed, dictated and finalized at location . Impression: Clear lungs. COPD.
--- NOTE | 2023-10-28 09:49 | ED.RECABL ---
HPI - Recheck/Abnormal Lab/Rx General Chief Complaint: Shortness of Breath/Dyspnea Stated Complaint: + blood cultures Time Seen by Provider: 10/28/23 09:26 History of Present Illness HPI narrative: Patient presenting here after being called back for positive blood cultures, he did have to positive cultures for Gram-positive bacilli. He had been recently admitted for sepsis pneumonia from flu. He states that since discharge she has been feeling better than he did when he 1st came in, however he has been having new onset diarrhea. Related Data Home Medications Medication Instructions Recorded Confirmed clopidogrel 75 mg tablet 75 mg PO DAILY 04/10/20 10/24/23 rosuvastatin 40 mg tablet 40 mg PO DAILY 04/10/20 10/24/23 nitroglycerin 0.4 mg sublingual 0.4 mg sublingual Q5-15M PRN Chest 07/13/22 10/24/23 tablet Pain acetaminophen 325 mg tablet 650 mg PO Q6H PRN Pain 10/24/23 10/24/23 (Tylenol) albuterol sulfate 90 mcg/actuation 2 puff inhalation Q6H PRN Wheezing 10/24/23 10/24/23 aerosol inhaler carvedilol 6.25 mg tablet 6.25 mg PO Q12H 10/24/23 10/24/23 losartan 50 mg tablet 50 mg PO DAILY 10/24/23 10/24/23 Allergies Allergy/AdvReac Type Severity Reaction Status Date / Time No Known Allergies Allergy Verified 07/13/22 16:48 [facility] Past Medical History Medical History Acute medial meniscus tear of left knee Contusion, knee and lower leg (05/20/20) COPD (chronic obstructive pulmonary disease) Coronary artery disease Heart attack History of coronary artery disease Hyperlipidemia Hypertension Vision abnormalities Surgical History Surgical History H/O heart artery stent 2 Hx of CABG 4 Family History Family History Grandparent Family history of malignant neoplasm Family history of emphysema Sibling Family history of lung cancer Father Family history of coronary artery disease Mother Family history of coronary artery disease Other Heart disease Hypertension Social History Social History Social History: The patient is and has 2 children. 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 The patient smokes a pack and half a day of cigarettes. The patient stated he is quitting today. Patient stated that he occasionally drinks alcohol. He denies any marijuana or illicit drugs. Code status full code Smoking packs per day: 1.5 Smoking cigarettes per day: 30.0 Years smoked: 45 Smoking pack-years: 67.50 Smoking status: Current every day smoker Tobacco type: cigarettes Additional smoking assessment comments: down to 3/4 pakg/day he quit apx 1 1/2 yrs after heart surgery Alcohol intake: current Drinks per week: 12 Substance use: current Substance use type: does not use Do You Feel Safe in your Home?: Yes Lack of Transportation: No Lack of Food: Never True Current Housing: I Have Housing Concerned About Future Housing: No Difficulty Paying Gas/Electric Bills: No Difficulty Paying for Meds: No Currently Unemployed: No Education: Trade/Vocational Certificate Difficulty w/ Childcare or Family Care: No Gender identity (if verbalized by the patient): Male Spiritual care concerns: No Course Vital Signs Vital signs: Vital Signs Oxygen Delivery Room Air 10/28/23 10:12 Temperature 97.8 F 10/28/23 10:35 Pulse Rate 60 10/28/23 11:00 Respiratory Rate 18 10/28/23 11:00 Blood Pressure 138/78 10/28/23 11:00 Pulse Oximetry 97 10/28/23 11:00 Oxygen Delivery Room Air 10/28/23 10:12 MDM - Recheck/Abnormal Lab/Rx MDM Narrative Medical decision making narrative: 1) Differential diagnosis: With positive cultures, could be sepsis poten
[2023-10-28 10:50] LABS: Basophils Absolute Auto 0.1 K/mm3 (0.0-0.1); Basophils Percent Auto 0.9 % (0.2-1.2); Eosinophils Absolute Auto 0.2 K/mm3 (0-0.3); Eosinophils Percent Auto 2.7 % (0-4.4); Hematocrit 47.6 % (42.0-52.0); Hemoglobin 15.2 g/dL (14.0-18.0); Immature Granulocyte Absolute 0.04 K/mm3 (0.00-0.031); Immature Granulocyte Percent A 0.5 % (0-0.5); Lymphocytes Absolute Auto 1.11 K/mm3 (0.9-3.2); Lymphocytes Percent Auto 14.3 % (18.3-44.2); Mean Corpuscular HGB Conc 31.9 g/dl (32-36); Mean Corpuscular Hemoglobin 30.2 pg (26-34); Mean Corpuscular Volume 94.4 fl (80-100); Mean Platelet Volume 10.7 fl (7.4-10.4); Monocytes Absolute Auto 0.7 K/mm3 (0.1-0.6); Monocytes Percent Auto 8.8 % (2.6-8.5); Neutrophils Absolute Auto 5.7 K/mm3 (1.3-6.7); Neutrophils Percent Auto 72.8 % (45.5-73.1); Platelet Count Result 309 k/mm3 (150-375); Red Blood Count 5.04 M/mm3 (4.6-6.20); Red Cell Distribution Width 13.4 % (11.5-14.5); White Blood Count 7.8 K/mm3 (4.5-10.0)
[2023-10-28 11:00] LABS: Anion Gap 6 mmol/L (8-16); Blood Urea Nitrogen 11 mg/dL (9-20); Calcium 9.5 mg/dL (8.4-10.2); Carbon Dioxide 30 mmol/L (22-30); Chloride 100 mmol/L (98-107); Estimated CRCL calculation 67 ml/min; Estimated Glomerular Filt Rate > 60; Glucose 98 mg/dL (65-110); Sodium 136 mmol/L (137-145)
[2023-10-28] MEDS: VANCOMYCIN 1,500 MG/NS 500 ML 1,500 MG/500 ML BAG 250 MG IVPB (11:42)
[2023-10-28] MEDS: LACTATED RINGERS 1,000 ML 999 ML IV CONT (11:42)
[2023-10-28] MEDS: LOPERAMIDE HCL 2 MG CAPSULE 4 MG PO (12:03)
[2023-10-28 12:40] LABS: MRSA (PCR) NOT DETECTED (NOT DETECTE)
--- NOTE | 2023-10-28 12:42 | ADMGEN ---
This patient, Tony Borrego, was admitted to [facility] Room 323-01. Patient/family oriented to hospital policies and general routines including ID bracelet, bed and alarms, visiting hours, pain management, procedures, bathroom and other care routines, personal items, smoking policy, room service/diet, and visiting hours. Information on how to activate the Rapid Response Team has been discussed. Patient/Family are encouraged to report perceived risks to care and to ask questions if they do not understand what they are told or what they should do.
--- NOTE | 2023-10-28 16:37 | PM.IMHP ---
H&P: HPI History of Present Illness Date/Time: 10/28/23 16:35 Chief Complaint: Positive blood cultures. Narrative: This is a pleasant 63-year-old male smoker (quit 1 week ago) with chronic obstructive pulmonary disease, coronary artery disease, and hypertension who presented to the emergency department at the direction of his doctor after he was found to have positive blood cultures. The patient provides the following history. He was admitted to the hospital through the emergency department on 10/23/2023 with influenza A, pneumonia, and hypoxia after presenting with shortness of breath. He was started on oseltamivir, azithromycin, and ceftriaxone. Oxygen was weaned and he was able to be discharged home on the . Blood cultures obtained on the day of admission are now growing Gram-positive bacilli in the aerobic bottles in both sets of cultures. He is overall feeling better however he does endorse new onset diarrhea. He denies fever, chills, sweats, sinus congestion, significant cough, abdominal pain, nausea, and vomiting. He has not noticed any blood or mucus in the stool In the ED: BMP and CBC were pretty unremarkable. Chest x-ray was clear. He was given a dose of ceftriaxone and vancomycin, repeat blood cultures were drawn, and he is being admitted in this setting for further workup. Review of Systems Review of Systems: Twelve systems were reviewed and are negative except for as per HPI. [facility] Past Medical History Medical History (Updated 10/28/23 @ 16:48 by Jacquelyn Frye PA-C) Chronic obstructive pulmonary disease Coronary artery disease Daily consumption of alcohol Hyperlipidemia Hypertension Tobacco dependence Surgical History Surgical History (Updated 10/28/23 @ 16:42 by Jacquelyn Frye PA-C) History of coronary artery stent placement History of four vessel coronary artery bypass graft (2016) Family History Family History Grandparent Family history of malignant neoplasm Family history of emphysema Sibling Family history of lung cancer Father Family history of coronary artery disease Mother Family history of coronary artery disease Other Heart disease Hypertension Social History Social History (Updated 10/28/23 @ 21:31 by Jacquelyn Frye PA-C) Social History: Surrogate medical decision maker: Rosalie Borrego, spouse. Code status: Full code. Smoking packs per day: 1.5 Smoking cigarettes per day: 30.0 Years smoked: 45 Smoking pack-years: 67.50 Smoking status: Former smoker Tobacco type: cigarettes Additional smoking assessment comments: Quit 10/21/2023 Alcohol intake: current Drinks per week: 12 Substance use: current Substance use type: does not use Do You Feel Safe in your Home?: Yes Lack of Transportation: No Lack of Food: Never True Current Housing: I Have Housing Concerned About Future Housing: No Difficulty Paying Gas/Electric Bills: No Difficulty Paying for Meds: No Currently Unemployed: No Education: Trade/Vocational Certificate Difficulty w/ Childcare or Family Care: No Living arrangements: with family Additional living arrangements comments: Lives in [place]. He is with 2 children. 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 Spiritual care concerns: No Meds Home Medications and Allergies Home Medications Medication Instructions Recorded Confirmed Type clopidogrel 75 mg tablet 75 mg PO DAILY 04/10/20 10/28/23 History rosuvastatin 40 mg tablet 40 mg PO DAILY 04/10/20 10/28/23 History nitroglycerin 0.4 mg sublingual 0.4 mg sublingual Q5-15M PRN Chest 07/13/22 10/28/23 History tablet Pain acetaminophen 325 mg tablet 650 mg PO Q6H PRN Pain 10/24/23 10/28/23 History (Tylenol) albuterol sulfate 90 mcg/actuation 2 puff inhalation Q6H PRN Wheezing 10/24/23 10/28/23 History aerosol inhaler carvedilol 6.
[2023-10-28] MEDS: OSELTAMIVIR PHOSPHATE 75 MG CAPSULE PO (20:05)
[2023-10-28] MEDS: carvediloL 6.25 MG TABLET PO (20:05)
[2023-10-28] MEDS: cefTRIAXone 2 GM/NS 100 ML 2 GM/100 ML BAG IVPB (20:09)
[2023-10-29 06:00] VITALS: BP 117/55; PULSE 70; RESP 16; TEMP 36.2; O2SAT 93
[2023-10-29] MEDS: VANCOMYCIN 1,000 MG/NS 250 ML 1,000 MG/250 ML BAG 250 MG IVPB (06:09)
[2023-10-29 06:33] LABS: Hematocrit 42.3 % (42.0-52.0); Hemoglobin 13.6 g/dL (14.0-18.0); Mean Corpuscular HGB Conc 32.2 g/dl (32-36); Mean Corpuscular Hemoglobin 30.2 pg (26-34); Mean Platelet Volume 10.7 fl (7.4-10.4); Platelet Count Result 295 k/mm3 (150-375); Red Cell Distribution Width 13.4 % (11.5-14.5); White Blood Count 10.2 K/mm3 (4.5-10.0)
[2023-10-29 06:39] LABS: Alanine Aminotransferase 28 U/L (6-50); Albumin Level 3.7 g/dL (3.5-5.1); Alkaline Phosphatase 63 U/L (38-126); Anion Gap 2 mmol/L (8-16); Aspartate Amino Transferase 26 U/L (17-59); Bilirubin,Total 0.4 mg/dL (0.2-1.3); Blood Urea Nitrogen 10 mg/dL (9-20); Calcium 9.1 mg/dL (8.4-10.2); Carbon Dioxide 31 mmol/L (22-30); Chloride 104 mmol/L (98-107); Estimated CRCL calculation 71 ml/min; Estimated Glomerular Filt Rate > 60; Glucose 92 mg/dL (65-110); Potassium 4.4 mmol/L (3.4-5.0); Sodium 137 mmol/L (137-145)
[2023-10-29 08:55] LABS: Toxigenic C. Diff NEGATIVE (NEGATIVE)
[2023-10-29] MEDS: CLOPIDOGREL BISULFATE 75 MG TABLET PO (09:57)
[2023-10-29] MEDS: OSELTAMIVIR PHOSPHATE 75 MG CAPSULE PO ×2 (09:57→20:35)
[2023-10-29 09:58] VITALS: PULSE 70
[2023-10-29] MEDS: LOSARTAN POTASSIUM 50 MG TABLET PO (09:58)
[2023-10-29] MEDS: carvediloL 6.25 MG TABLET PO ×2 (09:58→20:35)
[2023-10-29] MEDS: ROSUVASTATIN 10 MG TABLET 40 MG PO (09:58)
[2023-10-29] MEDS: AZITHROMYCIN 250 MG TABLET PO (09:58)
[2023-10-29 14:00] VITALS: BP 133/69; PULSE 67; RESP 16; TEMP 36.8; O2SAT 93
--- NOTE | 2023-10-29 15:56 | PM.IMPN ---
Progress Note: A&P Assessment and Plan (1) Coronary artery disease: Code(s): I25.10 - Atherosclerotic heart disease of [place] coronary artery without angina pectoris Status: Acute (2) Daily consumption of alcohol: Code(s): Z78.9 - Other specified health status Status: Acute (3) Tobacco dependence: Code(s): F17.200 - Nicotine dependence, unspecified, uncomplicated Status: Acute (4) Chronic obstructive pulmonary disease: Code(s): J44.9 - Chronic obstructive pulmonary disease, unspecified Status: Acute (5) Blood bacterial culture positive: Code(s): R78.81 - Bacteremia Status: Acute (6) Tobacco abuse: Code(s): Z72.0 - Tobacco use Status: Acute (7) History of coronary artery disease: Code(s): Z86.79 - Personal history of other diseases of the circulatory system Status: Acute (8) Hypertension: Code(s): I10 - Essential (primary) hypertension Status: Acute Assessment and Plan: Patient admitted in medical unit He has recently be discharged from the hospital after being treated for pneumonia and influenza A Blood cultures reviewed from on a 10/23/2023 which are growing Gram-positive cocci Blood cultures redrawn from yesterday 10/28/2023 which popped up Gram-positive cocci cultures as well Patient is mad, unhappy and grumpy about being called in to the hospital for admission He does not have any signs and symptoms of infection at this time Leukocytosis is minimally elevated at 10.6 Discussed with patient in detail on couple of occasions on the bedside, in the presence of floor nurse and charge nurse, that given his positive blood cultures, we have to wait for ID and sensitivities and treat him empirically with antibiotics to avoid any life-threatening conditions Patient has a decent likelihood of these blood cultures being contaminant which need to be followed Patient started on IV ceftriaxone and vancomycin until ID and sensitivity is obtained Spoke with ID pharmacist in detail as well Patient threatened to leave AMA on multiple occasions but finally calmed down and agreed to stay at least till tomorrow, after I gave him a thorough explanation ? Patient seen and examined at bedside during my morning rounds ? Collaborated with patient's nurse at the bedside in detail and addressed all concerns ? Labs, electrolytes, radiology, investigations and test results reviewed ? Consult/Nursing/Ancilliary notes on the chart reviewed and appreciated ? Spoke with patient/family at the bedside and answered all the questions that they had Repeat labs in a.m. Electrolyte replacement as per protocol. Patient will be monitored very closely on the floor. Further recommendations as per the hospital course. Time Spent With Patient Time with patient: 25 - 35 minutes Subjective Date/time seen: 10/29/23 15:56 Interval history: Patient seen side. He does not have sign and symptoms of infection. He feels very grumpy that he was called back to the hospital for positive blood cultures. He wants to go home. Review of Systems Review of Systems: 14 systems were reviewed with pertinent positives and negatives per HPI. Except as documented in the HPI/progress notes, all other systems were reviewed and are negative. All systems reviewed & are unremarkable except as noted in HPI and below Exam Narrative: PHYSICAL EXAMINATION: Vital signs: Please see the chart General physical exam: Patient sitting in bed, very unhappy and grumpy about being called in to the hospital Head/eyes: Atraumatic, EOMI, PERRLA ENT: Moist mucous membranes, nasal passages clear Neck: Supple, full range of motion, trachea midline CVS: S1 + S2, regular rate and rhythm, no murmurs Respiratory: Bilaterally fair air entry in both lung wilson, mild B/L crackles, symmetric chest expansion, no distress Abdomen: Soft, non-tender, bowel sounds +ve, no organomegaly Extremities: No clu
[2023-10-29] MEDS: cefTRIAXone 2 GM/NS 100 ML 2 GM/100 ML BAG IVPB (20:34)
[2023-10-29 20:35] VITALS: PULSE 70
[2023-10-29 22:00] VITALS: BP 134/65; PULSE 69; RESP 20; TEMP 37.6; O2SAT 94
[2023-10-30] MEDS: VANCOMYCIN 1,250 MG/NS 250 ML 1,250 MG/250 ML BAG 166.67 MG IVPB (00:42)
[2023-10-30 06:00] VITALS: BP 128/62; PULSE 73; RESP 20; TEMP 37; O2SAT 94
[2023-10-30 07:25] LABS: Basophils Absolute Auto 0.1 K/mm3 (0.0-0.1); Basophils Percent Auto 0.6 % (0.2-1.2); Eosinophils Absolute Auto 0.4 K/mm3 (0-0.3); Eosinophils Percent Auto 4.2 % (0-4.4); Hemoglobin 13.9 g/dL (14.0-18.0); Immature Granulocyte Absolute 0.05 K/mm3 (0.00-0.031); Immature Granulocyte Percent A 0.5 % (0-0.5); Lymphocytes Absolute Auto 1.45 K/mm3 (0.9-3.2); Lymphocytes Percent Auto 15.5 % (18.3-44.2); Mean Corpuscular HGB Conc 32.3 g/dl (32-36); Mean Corpuscular Hemoglobin 30.8 pg (26-34); Mean Corpuscular Volume 95.1 fl (80-100); Mean Platelet Volume 10.4 fl (7.4-10.4); Monocytes Absolute Auto 1.1 K/mm3 (0.1-0.6); Monocytes Percent Auto 11.8 % (2.6-8.5); Neutrophils Absolute Auto 6.3 K/mm3 (1.3-6.7); Neutrophils Percent Auto 67.4 % (45.5-73.1); Platelet Count Result 345 k/mm3 (150-375); Red Blood Count 4.52 M/mm3 (4.6-6.20); Red Cell Distribution Width 13.6 % (11.5-14.5); White Blood Count 9.3 K/mm3 (4.5-10.0)
[2023-10-30 07:31] LABS: Anion Gap 5 mmol/L (8-16); Blood Urea Nitrogen 10 mg/dL (9-20); Calcium 9.2 mg/dL (8.4-10.2); Carbon Dioxide 32 mmol/L (22-30); Chloride 102 mmol/L (98-107); Estimated CRCL calculation 63 ml/min; Estimated Glomerular Filt Rate > 60; Glucose 95 mg/dL (65-110); Phosphorus 3.4 mg/dL (2.5-4.5); Potassium 4.2 mmol/L (3.4-5.0); Sodium 139 mmol/L (137-145)
[2023-10-30 07:43] LABS: Troponin I < 0.012 ng/mL (0.000-0.034)
[2023-10-30 08:00] VITALS: PULSE 85; O2SAT 93
[2023-10-30 09:40] VITALS: PULSE 85
[2023-10-30] MEDS: AZITHROMYCIN 250 MG TABLET PO (09:40)
[2023-10-30] MEDS: carvediloL 6.25 MG TABLET PO (09:40)
[2023-10-30] MEDS: CLOPIDOGREL BISULFATE 75 MG TABLET PO (09:40)
[2023-10-30] MEDS: ROSUVASTATIN 10 MG TABLET 40 MG PO (09:40)
[2023-10-30] MEDS: OSELTAMIVIR PHOSPHATE 75 MG CAPSULE PO (09:40)
[2023-10-30] MEDS: LOSARTAN POTASSIUM 50 MG TABLET PO (09:40)
[2023-10-30 13:00] VITALS: BMI 18.5
--- NOTE | 2023-10-30 14:39 | PM.DS ---
DS: Admitting Diagnosis Discharge Date 10/30/2023: Admitting Diagnosis Assessment and plan (1) Bacteremia: ?Code(s): R78.81 - Bacteremia ?Status:?Acute (2) Chronic obstructive pulmonary disease: ?Code(s): J44.9 - Chronic obstructive pulmonary disease, unspecified ?Status:?Acute (3) Hypertension: ?Code(s): I10 - Essential (primary) hypertension ?Status:?Acute (4) Daily consumption of alcohol: ?Code(s): Z78.9 - Other specified health status ?Status:?Acute (5) Coronary artery disease: ?Code(s): I25.10 - Atherosclerotic heart disease of [place] coronary artery without angina pectoris ?Status:?Acute (6) Tobacco abuse: ?Code(s): Z72.0 - Tobacco use ?Status:?Acute DS: Discharge Diagnosis Discharge Diagnosis (1) Contamination of blood culture: Code(s): R79.9 - Abnormal finding of blood chemistry, unspecified Status: Acute (2) Coronary artery disease: Code(s): I25.10 - Atherosclerotic heart disease of [place] coronary artery without angina pectoris Status: Acute (3) Daily consumption of alcohol: Code(s): Z78.9 - Other specified health status Status: Acute (4) Tobacco dependence: Code(s): F17.200 - Nicotine dependence, unspecified, uncomplicated Status: Acute (5) Chronic obstructive pulmonary disease: Code(s): J44.9 - Chronic obstructive pulmonary disease, unspecified Status: Acute (6) Blood bacterial culture positive: Code(s): R78.81 - Bacteremia Status: Acute (7) Troponin I above reference range: Code(s): R79.89 - Other specified abnormal findings of blood chemistry Status: Acute (8) Influenza A: Code(s): J10.1 - Influenza due to other identified influenza virus with other respiratory manifestations Status: Acute (9) Community acquired pneumonia: Qualifiers: Laterality: right Lung location: middle lobe of lung Qualified Code(s): J18.9 - Pneumonia, unspecified organism Code(s): J18.9 - Pneumonia, unspecified organism Status: Acute (10) Hypertension: Code(s): I10 - Essential (primary) hypertension Status: Acute DS: Summary Hospital Course Reason for hospitalization: Patient called in the hospital for admission due to positive blood cultures Hospital Course: H&P: HPI History of Present Illness Date/Time: 10/28/23? 16:35 Chief Complaint: Positive blood cultures. Narrative: This is a pleasant 63-year-old male smoker (quit 1 week ago) with chronic obstructive pulmonary disease, coronary artery disease, and hypertension who presented to the emergency department at the direction of his doctor after he was found to have positive blood cultures. The patient provides the following history. He was admitted to the hospital through the emergency department on 10/23/2023 with influenza A, pneumonia, and hypoxia after presenting with shortness of breath. He was started on oseltamivir, azithromycin, and ceftriaxone. Oxygen was weaned and he was able to be discharged home on the . Blood cultures obtained on the day of admission are now growing Gram-positive bacilli in the aerobic bottles in both sets of cultures. He is overall feeling better however he does endorse new onset diarrhea. He denies fever, chills, sweats, sinus congestion, significant cough, abdominal pain, nausea, and vomiting. He has not noticed any blood or mucus in the stool In the ED: BMP and CBC were pretty unremarkable. Chest x-ray was clear. He was given a dose of ceftriaxone and vancomycin, repeat blood cultures were drawn, and he is being admitted in this setting for further workup. 10/29/2023: Patient admitted in medical unit He has recently be discharged from the hospital after being treated for pneumonia and influenza A Blood cultures reviewed from on a 10/23/2023 which are growing Gram-positive cocci Blood cultures redrawn from yesterday 10/28/2023 which po
== END 2023-10-30 15:20 | disposition home or self-care (01) | DRG 872 ==
LOC: ANHED 11:10 → ANH3MEDSUR 12:05
PROVIDERS: Physician Assistant; Admitting Provider General Practice; Emergency Provider Emergency Medicine; PCP Nurse Practitioner; Visit Provider Family Medicine
DX: R78.81 Bacteremia (principal); B95.7 Other staphylococcus as the cause of diseases classified elsewhere; J44.9 Chronic obstructive pulmonary disease, unspecified; F17.210 Nicotine dependence, cigarettes, uncomplicated; F10.90 Alcohol use, unspecified, uncomplicated; I10 Essential (primary) hypertension; I25.10 Atherosclerotic heart disease of native coronary artery without angina pectoris; R79.89 Other specified abnormal findings of blood chemistry; R19.7 Diarrhea, unspecified; Z95.5 Presence of coronary angioplasty implant and graft; Z95.1 Presence of aortocoronary bypass graft; Z79.02 Long term (current) use of antithrombotics/antiplatelets
CPT/HCPCS: 36415; 71046; 80048; 80053; 80202; 83735; 84100; 84484; 85025; 85027; 87040; 87045; 87077; 87181; 87427; 87449; 87493; 87641; 99285; A9270; J0696; J3370; J7120